=== PATIENT | female | born 1940 | race Caucasian/White ===

== ENCOUNTER → 2016-10-31 | Outpatient (CLI) | payer OTHER ==
[2016-10-26 12:40] LABS: BLOOD UREA NITROGEN 17 mg/dl (7-18); CREATININE 0.93 mg/dl (0.60-1.20)
[~2016-10-31] MED LIST: ACET-1101 PO; ALEN70TA4 PO; ATOR-24 PO; CLON0.5T3 PO; GADAVIST IV PRN; LEVO50TA PO; LEVO75TA5 PO; LISI-725 PO; MAGN1TAB41 PO; MULT-506 PO; PARO20TA4 PO
--- NOTE | 2016-10-31 13:16 | DIAGNOSTIC IMAGING REPORT ---
Brain and bilateral internal auditory canal MRI WITH AND WITHOUT CONTRAST HISTORY: H93.19 [id number] Right asymmetrical SNHLPATIENT WITH RIGHT TECHNIQUE: Multiplanar multisequence MRI of the brain and bilateral internal auditory canals were performed both before and after the intravenous administration of contrast. COMPARISON STUDY: None. FINDINGS: There are no areas of restricted diffusion to suggest acute infarction. 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 Ventriculomegaly and prominence of the sylvian fissures is likely due to volume loss. This remains unchanged. Periventricular matter T2 hyper intensity is nonspecific but favors microvascular ischemic change.. The paranasal sinuses are clear. The mastoid air cells are clear. There is no mass, hematoma, midline shift. The major vascular flow-voids at the skull base are well maintained. Postcontrast sequences show no areas of abnormal enhancement. No abnormal enhancement or mass identified within the internal auditory canals. The 7th and 8th cranial nerves are normal in course and caliber. No evidence for inner ear dysplasia. IMPRESSION: 1. No acute intracranial abnormality. 2. Normal bilateral internal auditory canals. 3. Ventriculomegaly and prominence of the sylvian fissures is likely due to volume loss. This remains unchanged. Electronically signed by: Adan Burns M.D. 10/31/2016 1:14 PM Dictated Date/Time: 10/31/2016 1:03 PM
== END | disposition home or self-care (01) ==
LOC: C.MRI 10:25
DX: H93.19 Tinnitus, unspecified ear (principal); H90.41 Sensorineural hearing loss, unilateral, right ear, with unrestricted hearing on the contralateral side; G93.89 Other specified disorders of brain

== ENCOUNTER → 2017-01-11 | Outpatient (CLI) | payer OTHER ==
[~2017-01-11] MED LIST changes: -GADAVIST IV PRN
[2017-01-11 12:13] LABS: BASO % 0.3 %; BASO ABS # 0.02 K/uL (0-0.2); COMPLETE YES; EOS % 2.2 %; HEMATOCRIT 45.2 % (37-47); IG% 0.2 %; LYMPH % 30.9 %; LYMPH ABS # 1.94 K/uL (1.2-3.4); MEAN CELL VOLUME 92.6 fL (80-100); MEAN CORPUSCULAR HEMOGLOBIN 30.5 pg (25-34); MEAN PLATELET VOLUME 9.6 fL (7.4-10.4); MONO % 7.6 %; NEUT % 58.8 %; PLATELET COUNT 277 K/uL (130-400); RED BLOOD COUNT 4.88 M/uL (4.2-5.4); WHITE BLOOD COUNT 6.28 K/uL (4.8-10.8)
[2017-01-11 12:29] LABS: ESTIMATED AVERAGE GLUCOSE 123 mg/dl; HA1C FLAG Normal (Normal)
[2017-01-11 12:48] LABS: ALB/GLOB RATIO 1.2 (0.9-2); ALKALINE PHOSPHATASE 62 U/L (45-117); ALT/SGPT 38 U/L (12-78); AST/SGOT 29 U/L (15-37); BLOOD UREA NITROGEN 14 mg/dl (7-18); BUN/CREATININE RATIO 13.1 (10-20); CARBON DIOXIDE 28 mmol/L (21-32); CHLORIDE 108 mmol/L (98-107); CHOLESTEROL 146 mg/dl (0-200); CHOLESTEROL/HDL RATIO 3.2; GLUCOSE 105 mg/dl (70-99); HDL CHOLESTEROL 45 mg/dl; LDL CHOLESTEROL CALCULATED 63 mg/dl; SODIUM 143 mmol/L (136-145); TRIGLYCERIDES 191 mg/dl (0-150); VERY LOW DENSITY LIPOPROT CALC 38 mg/dl
[2017-01-11 12:49] LABS: CALCIUM 10.6 mg/dl (8.5-10.1)
[2017-01-11 12:55] LABS: THYROID STIMULATING HORMONE 0.688 uIu/ml (0.300-4.500)
== END | disposition home or self-care (01) ==
LOC: C.LABBFT 09:56
PROVIDERS: ATTEND Internal Medicine
DX: E03.9 Hypothyroidism, unspecified (principal); R73.9 Hyperglycemia, unspecified; M81.0 Age-related osteoporosis without current pathological fracture; E78.00 Pure hypercholesterolemia, unspecified; D64.9 Anemia, unspecified

== ENCOUNTER → 2017-01-26 | Outpatient (CLI) | payer OTHER ==
[~2017-01-26] MED LIST changes: -LEVO75TA5 PO
== END | disposition home or self-care (01) ==
LOC: C.LABBFT 10:08
PROVIDERS: ATTEND Internal Medicine
DX: E83.51 Hypocalcemia (principal)

== ENCOUNTER → 2017-04-05 | Outpatient (CLI) | payer OTHER ==
[2017-04-05 12:07] LABS: ALT/SGPT 28 U/L (12-78); AST/SGOT 19 U/L (15-37); BLOOD UREA NITROGEN 18 mg/dl (7-18); BUN/CREATININE RATIO 17.5 (10-20); CALCIUM 9.9 mg/dl (8.5-10.1); CARBON DIOXIDE 26 mmol/L (21-32); CHLORIDE 109 mmol/L (98-107); GLUCOSE 123 mg/dl (70-99); MAGNESIUM 2.7 mg/dl (1.8-2.4); POTASSIUM 3.8 mmol/L (3.5-5.1); SODIUM 143 mmol/L (136-145)
[2017-04-05 12:09] LABS: ALB/GLOB RATIO 1.5 (0.9-2); ALKALINE PHOSPHATASE 57 U/L (45-117)
[2017-04-05 14:31] LABS: CALCIUM URINE 18.1 mg/dl
== END | disposition home or self-care (01) ==
LOC: C.LAB1850 10:07
PROVIDERS: ATTEND Internal Medicine Endocrinology, Diabetes & Metabolism
DX: E83.52 Hypercalcemia (principal)

== ENCOUNTER 2017-06-16 23:43 | Emergency (ER) | payer OTHER ==
[~2017-06-16] VITALS: Ht 162.6 cm; Wt 69.4 kg
[2017-06-16 23:47] VITALS: TEMP 36.6; Ht 162.6 cm; Wt 69.4 kg
[2017-06-17] MEDS ORDERED: LEVO75TA5 PO (00:02)
--- NOTE | 2017-06-17 00:17 | EMERGENCY ROOM VISIT NOTE ---
History Report prepared by Amelia: aGutam Licea Under the Supervision of: Dr. Emeka Almodovar M.D. First contact with patient: 00:06 Chief Complaint: FALL Stated Complaint: FALL History of Present Illness The patient is a 76 year old female with a history of vertigo who presents to the Emergency Room with complaints of a sudden mechanical fall that occurred prior to arrival tonight. She states that she has been using a walker ever since a back surgery a year ago, but recently she has been learning to walk without a walker. She notes that over the last couple days, she has been falling and she does not know why. The patient's son says that the patient fell twice today. The patient states that she was in bed tonight, but had to go to the bathroom, so she got up. She says that she felt a bit dizzy, and then hit a walker into the other walker, and then fell to the floor. The patient states that she has had left hip pain ever since the fall, and she says that she was on the floor for a while. She says that her vertigo gets worse after the fall, but denies any current dizziness. She also denies any loss of consciousness, neck pain, hits to her head, rib pain, chest pain, shortness of breath, fevers, recent illnesses, numbness or urinary symptoms. The patient says that she hurt her elbow a bit from crawling on the floor after the fall. She is not on any blood thinners. Per the patient's son, the patient has been taking Tylenol with codeine for back pain after the surgery. Source of History: patient Onset: Prior to arrival tonight Position: other (global - fall) Quality: other (mechanical) Timing: other (sudden) Associated Symptoms: No LOC, No fevers, No neck pain, No SOB, No urinary symptoms, No numbness Note: Associated symptoms: Left hip pain. Hurt left wrist from crawling on floor. Dizzy intermittently today. Denies recent illnesses or hits to head, rib pain. Review of Systems See HPI for pertinent positives & negatives. A total of 10 systems reviewed and were otherwise negative. Past Medical & Surgical Medical Problems: (1) Closed fracture of right maxilla (2) HTN (hypertension) (3) Spinal cord compression (4) Syncope and collapse Surgical Problems: (1) H/O: hysterectomy Old medical records were reviewed. Nurse's notes were reviewed and I agree with. Family History FH: HTN (hypertension) FH: diabetes mellitus FH: heart disease Social History Smoking Status: Never Smoker Alcohol Use: occasionally Housing Status: lives with family Occupation Status: unemployed Current/Historical Medications Scheduled Alendronate Sodium (Fosamax), 70 MG PO WK Atorvastatin (Lipitor), 40 MG PO HS Clonazepam (Klonopin), 0.5 MG PO DAILY Levothyroxine Sodium (Levothyroxine Sodium), 1 TAB PO DAILY Lisinopril (Zestril), 20 MG PO QAM Multivitamin (Multivitamin), 1 TAB PO QAM Paroxetine Hcl (Paxil), 20 MG PO QAM Scheduled PRN Acetaminophen W/ Codeine (Tylenol W/Codeine #3), 1 TAB PO QID PRN for Pain Allergies Coded Allergies: Penicillins (Verified Allergy, Unknown, childhood allergy, 06/17/17) Physical Exam Vital Signs Date Time Temp Pulse Resp B/P (MAP) Pulse Ox O2 Delivery O2 Flow Rate FiO2 06/17/17 01:31 79 21 175/80 93 Room Air 06/16/17 23:47 36.6 82 20 178/80 96 Room Air Physical Exam General: Non-ill appearing older female in no acute distress. Answers questions appropriately, somewhat hard of hearing. HEENT: Normal cephalic atraumatic. Pupils are equal round and reactive to light. Extraocular movements are intact. Oropharynx is pink with moist mucous membranes. No swelling of the mouth lips or tongue. Neck: Supple with a midline trachea. No meningeal signs or stiffness, no JVD or bruits. No Stridor. Chest: Clear to auscultation bilaterally. No wheezes or rhonchi. No increased work of breathing. Heart: regular rate and rhythm. Abdomen: Soft nontender, nondistended without rebound guarding or rigidity. Extremities: Small bruise on left forearm. Small bruises to knees bilaterally without tenderness. Full range of motion of hips and knees. No calf tenderness or assymetry. Spine/Back. Non tender to palpation. No CVA tenderness. Large previous scar on back. Skin: Good turgor without rashes. Neurologic exam: Cranial nerves two through 12 are intact. Motor and sensation are intact and symmetrical throughout. Medical Decision & Procedures ER Provider Diagnostic Interpretation: Radiology results as stated below per my review and radiologist interpretation: PELVIS AND HIP X-RAY: No fracture or dislocation seen, no acute abnormalities. CT HEAD: Compared to MRI of 10/31/16 No acute brain or skull injury. Ventriculomegaly. Cannot exclude normal pressure hydrocephalus. Radiologist: Alfred Bowman M.D. Laboratory Results 06/17/17 00:30 Red Blood Count 4.70, Mean Corpuscular Volume 90.2, Mean Corpuscular Hemoglobin 30.4, Mean Corpuscular Hemoglobin Concent 33.7, Mean Platelet Volume 9.2, Neutrophils (%) (Auto) 76.0, Lymphocytes (%) (Auto) 17.3, Monocytes (%) (Auto) 5.5, Eosinophils (%) (Auto) 0.8, Basophils (%) (Auto) 0.2, Neutrophils # (Auto) 6.79, Lymphocytes # (Auto) 1.55, Monocytes # (Auto) 0.49, Eosinophils # (Auto) 0.07, Basophils # (Auto) 0.02 06/17/17 00:30 Test 06/17/17 00:30 06/17/17 00:33 06/17/17 01:30 White Blood Count 8.94 K/uL (4.8-10.8) Red Blood Count 4.70 M/uL (4.2-5.4) Hemoglobin 14.3 g/dL (12.0-16.0) Hematocrit 42.4 % (37-47) Mean Corpuscular Volume 90.2 fL (80-100) Mean Corpuscular Hemoglobin 30.4 pg (25-34) Mean Corpuscular Hemoglobin Concent 33.7 g/dl (32-36) Platelet Count 216 K/uL (130-400) Mean Platelet Volume 9.2 fL (7.4-10.4) Neutrophils (%) (Auto) 76.0 % Lymphocytes (%) (Auto) 17.3 % Monocytes (%) (Auto) 5.5 % Eosinophils (%) (Auto) 0.8 % Basophils (%) (Auto) 0.2 % Neutrophils # (Auto) 6.79 K/uL (1.4-6.5) Lymphocytes # (Auto) 1.55 K/uL (1.2-3.4) Monocytes # (Auto) 0.49 K/uL (0.11-0.59) Eosinophils # (Auto) 0.07 K/uL (0-0.5) Basophils # (Auto) 0.02 K/uL (0-0.2) RDW Standard Deviation 41.7 fL (36.4-46.3) RDW Coefficient of Variation 12.6 % (11.5-14.5) Immature Granulocyte % (Auto) 0.2 % Immature Granulocyte # (Auto) 0.02 K/uL (0.00-0.02) Prothrombin Time 10.7 SECONDS (9.0-12.0) Prothromb Time International Ratio 1.0 (0.9-1.1) Activated Partial Thromboplast Time 26.7 SECONDS (21.0-31.0) Partial Thromboplastin Ratio 1.0 Anion Gap 6.0 mmol/L (3-11) Est Creatinine Clear Calc Drug Dose 51.8 ml/min Estimated GFR () 74.5 Estimated GFR (Non- 64.3 BUN/Creatinine Ratio 15.9 (10-20) Calcium Level 9.4 mg/dl (8.5-10.1) Total Bilirubin 0.5 mg/dl (0.2-1) Direct Bilirubin 0.1 mg/dl (0-0.2) Aspartate Amino Transf (AST/SGOT) 42 U/L (15-37) Alanine Aminotransferase (ALT/SGPT) 35 U/L (12-78) Alkaline Phosphatase 60 U/L (45-117) Total Creatine Kinase 359 U/L (26-192) Creatine Kinase MB 4.2 ng/ml (0.5-3.6) Creatine Kinase MB Ratio 1.2 (0-3.0) Total Protein 7.5 gm/dl (6.4-8.2) Albumin 3.9 gm/dl (3.4-5.0) Lipase 143 U/L (73-393) Bedside Troponin I < 0.030 ng/ml (0-0.045) Urine Color YELLOW Urine Appearance CLOUDY (CLEAR) Urine pH 8.5 (4.5-7.5) Urine Specific [place] 1.020 (1.000-1.030) Urine Protein NEG (NEG) Urine Glucose (UA) NEG (NEG) Urine Ketones NEG (NEG) Urine Occult Blood NEG (NEG) Urine Nitrite NEG (NEG) Urine Bilirubin NEG (NEG) Urine Urobilinogen NEG (NEG) Urine Leukocyte Esterase SMALL (NEG) Urine WBC (Auto) 1-5 /hpf (0-5) Urine RBC (Auto) 0-4 /hpf (0-4) Urine Hyaline Casts (Auto) 1-5 /lpf (0-5) Urine Epithelial Cells (Auto) 20-30 /lpf (0-5) Urine Bacteria (Auto) NEG (NEG) Laboratory studies as stated above per my review. ECG Indication: other (dizzy) Rate (beats per minute): 78 Rhythm: normal sinus Findings: no acute ischemic change, no ectopy Change: no significant change (compared to October 16 2015) ED Course 0007: Past medical records reviewed. The patient was evaluated in room B11B, and a complete history and physical examination were performed 0124: I reevaluated the patient and she is getting catheterized right now. I talked to the patient's son. 0151: I reevaluated the patient and she is getting an ambulatory trial. 0200: Upon reevaluation, the patient is resting and wants to go home. She will stay with her son nigel. I discussed the results and treatment plan with her. She verbalized agreement of the treatment plan. The patient was discharged home. Medical Decision Differentials include trauma, orthopedic injuries, vertigo, intracranial process , infection, electrolyte or metabolic abnormality. This patient comes in as described above. She fell has left hip pain she is followed a couple times recently. Her son thinks that is related to her usage of Tylenol No. 3 which she takes for her back. She did not hit her head just had some dizziness lately, she does tend to suffer from chronic vertigo and she says when she gets feeling dizzy she tends to feel dizzy off-and-on. She has no vertigo symptoms here. She looks well on exam and has no complaints at present when I move both her hips they do not cause any pain. She has no shortening or deformity. She has small abrasions to her knees. IV access established, EKG was obtained which shows nothing to suggest acute coronary syndrome or arrhythmia. She has no acute electrolyte or metabolic abnormality. She nothing to suggest infection. X-ray of the pelvis and left hip was unremarkable. The right hip is well visualized as well and has no fracture or abnormality. She initially had left hip pain but when she walks she said her right hip was now hurting and I went back and reviewed the x-rays it looks unremarkable CAT scan of her head does not show any acute findings. She does have some atrophy and I cannot rule out normal pressure hydrocephalus, I think that's unlikely clinically however and is more likely from atrophy. She is able walk with a walker does feel up to going home. She's going to stay with her son nigel and see how she is doing. I encourage her return if she has problems taking care of herself or any new problems or concerns. She is going to use Aleve rather then the Tylenol No. 3 as the son feels that this is playing a role and I I tend agree as it could be making her feel off balance. She should follow-up with her doctor Monday for recheck and return over the weekend if symptoms worsen or she has any new problems or concerns. Medication Reconcilliation Current Medication List: was personally reviewed by me Blood Pressure Screening Patient's blood pressure: Elevated blood pressure Blood pressure disposition: Elevated BP felt to be situational Impression Primary Impression: Hip pain, left Additional Impression: Dizziness Scribe Attestation The scribe's documentation has been prepared under my direction and personally reviewed by me in its entirety. I confirm that the note above accurately reflects all work, treatment, procedures, and medical decision making performed by me. Departure Information Dispostion Home / Self-Care Referrals Digeo Sutton M.D. (PCP) Patient Instructions My [facility] Additional Instructions Rest. Use your walker and be very careful when getting up and down. Use Aleve rather than Tylenol No. 3 as I think that may be making you drowsy and off balance Return if: Problems taking care of your health self at home, further falls, numbness weakness, any new problems or concerns Follow-up with your doctor Monday for recheck Problem Qualifiers
[2017-06-17 00:50] LABS: BASO % 0.2 %; BASO ABS # 0.02 K/uL (0-0.2); COMPLETE YES; EOS % 0.8 %; HEMATOCRIT 42.4 % (37-47); IG% 0.2 %; LYMPH % 17.3 %; LYMPH ABS # 1.55 K/uL (1.2-3.4); MEAN CELL VOLUME 90.2 fL (80-100); MEAN CORPUSCULAR HEMOGLOBIN 30.4 pg (25-34); MEAN CORPUSCULAR HGB CONC 33.7 g/dl (32-36); MEAN PLATELET VOLUME 9.2 fL (7.4-10.4); MONO % 5.5 %; PLATELET COUNT 216 K/uL (130-400); WHITE BLOOD COUNT 8.94 K/uL (4.8-10.8)
[2017-06-17 01:04] LABS: PROTHROMBIN TIME (PATIENT) 10.7 SECONDS (9.0-12.0)
[2017-06-17 01:08] LABS: BUN/CREATININE RATIO 15.9 (10-20); CALCIUM 9.4 mg/dl (8.5-10.1); CREATININE 0.87 mg/dl (0.60-1.20); POTASSIUM 3.9 mmol/L (3.5-5.1)
[2017-06-17 01:13] LABS: CKMB/CK RATIO 1.2 (0-3.0)
[2017-06-17 01:47] LABS: URINE APPEARANCE CLOUDY (CLEAR); URINE BILIRUBIN NEG (NEG); URINE COLOR YELLOW; URINE EPITHELIAL CELL AUTO 20-30 /lpf (0-5); URINE NITRITE NEG (NEG); URINE PH 8.5 (4.5-7.5); UROBILINOGEN NEG (NEG)
[2017-06-17 01:52] LABS: MANUAL MICROSCOPIC REQUIRED? NO; REVIEW REQ? NO
[2017-06-17 02:21] VITALS: BP 175/80; PULSE 79; O2SAT 94
--- NOTE | 2017-06-17 09:06 | DIAGNOSTIC IMAGING REPORT ---
CT OF THE HEAD WITHOUT CONTRAST CLINICAL HISTORY: Dizzy, frequent falls. COMPARISON STUDY: Head CT October 14, 2015 and MRI of the brain October 31, 2016. CT DOSE: 614.27 mGy.cm TECHNIQUE: Helical axial images of the head were obtained without IV contrast. Automated exposure control was utilized for the study. A dose lowering technique was utilized adhering to the principles of ALARA. FINDINGS: No acute intracranial hemorrhage, midline shift or mass effect is present. Ventricular dilatation is unchanged. Basilar cisterns are patent. There are no extra-axial collections. White matter hypodensity suggests small vessel disease. There are no findings to suggest acute dural sinus thrombosis or acute territorial infarct. There is no calvarial fracture. IMPRESSION: 1. No acute intracranial findings. 2. No change in ventricular dilatation which is proportional to prominence of the sylvian fissures which favors central volume loss. Normal pressure hydrocephalus could appear similar but is considered less likely. Electronically signed by: Ascencion Navarro M.D. 06/17/2017 9:05 AM Dictated Date/Time: 06/17/2017 9:01 AM
--- NOTE | 2017-06-17 09:07 | DIAGNOSTIC IMAGING REPORT ---
L PELVIS/UNILATERAL HIP 1 VIEW CLINICAL HISTORY: Left hip pain. Fall. COMPARISON: None FINDINGS: The sacroiliac joints and symphysis pubis are intact. There is no acute fracture within the pelvis or hips. IMPRESSION: No acute fracture within the pelvis or hips. Electronically signed by: Ascencion Navarro M.D. 06/17/2017 9:05 AM Dictated Date/Time: 06/17/2017 9:05 AM
== END 2017-06-17 02:23 | disposition home or self-care (01) ==
LOC: EDBD 23:43 → C.EDB 23:43
DX: R42 Dizziness and giddiness (principal); M25.552 Pain in left hip; I10 Essential (primary) hypertension; Z87.81 Personal history of (healed) traumatic fracture; Z90.710 Acquired absence of both cervix and uterus; Z79.899 Other long term (current) drug therapy; Z82.49 Family history of ischemic heart disease and other diseases of the circulatory system; Z83.3 Family history of diabetes mellitus

== ENCOUNTER → 2017-11-21 | Outpatient (CLI) | payer OTHER ==
[~2017-11-21] MED LIST changes: -LEVO50TA PO; +LEVO75TA5 PO; -MAGN1TAB41 PO
[2017-11-21 12:31] LABS: HEMOGLOBIN A1C 5.8 % (4.5-5.6)
[2017-11-21 12:52] LABS: ALBUMIN 4.1 gm/dl (3.4-5.0); ALKALINE PHOSPHATASE 66 U/L (45-117); ALT/SGPT 33 U/L (12-78); AST/SGOT 27 U/L (15-37); BLOOD UREA NITROGEN 11 mg/dl (7-18); CALCIUM 9.8 mg/dl (8.5-10.1); CARBON DIOXIDE 27 mmol/L (21-32); CREATININE 0.88 mg/dl (0.60-1.20); GLUCOSE 113 mg/dl (70-99); POTASSIUM 4.5 mmol/L (3.5-5.1); SODIUM 141 mmol/L (136-145); TOTAL PROTEIN 7.8 gm/dl (6.4-8.2)
== END | disposition home or self-care (01) ==
LOC: C.LABBFT 10:49
PROVIDERS: ATTEND Internal Medicine
DX: E21.0 Primary hyperparathyroidism (principal); M81.0 Age-related osteoporosis without current pathological fracture; E03.9 Hypothyroidism, unspecified; R73.03 Prediabetes

== ENCOUNTER 2023-05-13 11:34 | Inpatient (IN) ==
[2023-05-13] MEDS ORDERED: ONDANSETRON INJ 2 MG/ML 2 ML VIAL IV STA (11:49)
[2023-05-13] MEDS ORDERED: MoRPHine SULFATE 2 MG/ML CARP IV STA (11:49)
--- NOTE | 2023-05-13 11:56 | Emergency Department Note ---
History of Present Illness General Chief complaint: Fall Stated complaint: FALL Time Seen by Provider: 05/13/23 11:48 Source: patient, family (Son who is at the bedside), EMS (I talked to the physician underwriter who brought her in) and RN notes reviewed Mode of arrival: ambulatory Limitations: no limitations History of Present Illness This patient is an 82-year-old female comes in after suffering a mechanical fall. She was using her walker and said it got away from her she leaned on her left knee. She is on no blood thinners she does not think she hit her head and has no headache no chest pain shortness of breath or abdominal pain. No numbn ess or weakness but she has difficulty extending her left knee secondary to pain/deformity. Home Medications Medication Instructions Recorded Confirmed Type alendronate 70 mg tablet 70 mg PO WEEKLY #12 tabs 02/09/19 05/13/23 History atorvastatin 40 mg tablet 40 mg PO QPM #90 tabs 02/09/19 05/13/23 History cholecalciferol (vitamin D3) 75 3,000 units PO QAM 02/09/19 05/13/23 History mcg (3,000 unit) tablet fluticasone propionate 50 2 sprays intranasal DAILY PRN 02/09/19 05/13/23 History mcg/actuation nasal Allergy Symptoms spray,suspension (Flonase Allergy Relief) hydrocortisone 2.5 % topical cream 1 appln KS DAILY PRN Hemorrhoids 02/09/19 05/13/23 History with perineal applicator (Anusol-HC) hydrocortisone acetate 25 mg 25 mg KS BID PRN Hemorrhoids #28 ea 02/09/19 05/13/23 History rectal suppository loratadine 10 mg capsule 10 mg PO QAM 02/09/19 05/13/23 History magnesium 200 mg tablet 400 mg PO QAM 02/09/19 05/13/23 History kqgpvdfgzhpq-qmrfidub-ntrejl tablet 1 tab PO QAM 02/09/19 05/13/23 History meclizine 25 mg tablet 25 mg PO Q6 PRN dizziness #30 tabs 02/11/19 05/13/23 Rx montelukast 10 mg tablet 10 mg PO QAM #30 tabs 02/27/19 05/13/23 History acetaminophen 300 mg-codeine 30 mg 1 tab PO BID PRN Pain 04/27/20 05/13/23 History tablet levothyroxine 100 mcg tablet 100 mcg PO QAM 03/19/21 05/13/23 History lidocaine 5 % topical patch 1 patch topical DAILY 03/19/21 05/13/23 History losartan 100 mg tablet 100 mg PO QAM 03/19/21 05/13/23 History ondansetron 4 mg disintegrating 4 mg PO Q8H 03/19/21 05/13/23 History tablet pantoprazole 20 mg tablet,delayed 20 mg PO QAM 03/19/21 05/13/23 History release sennosides 8.6 mg tablet (senna) 8.6 - 17.2 mg PO HS 03/19/21 05/13/23 History spironolactone 25 mg tablet 25 mg PO QAM 03/19/21 05/13/23 History Medical Marijuana 10 mg PO BID PRN Pain 03/22/21 05/13/23 History baclofen 10 mg tablet 10 mg PO BID PRN pain/spasm #30 01/16/23 05/13/23 Rx tabs Allergies Allergy/AdvReac Type Severity Reaction Status Date / Time Penicillins Allergy Mild childhood Verified 09/10/21 10:21 allergy povidone-iodine AdvReac Unknown Hives Verified 09/10/21 10:21 [From Betadine] Past Med/Surg History Medical History Allergic rhinitis Depression with anxiety no meds currently Gait disturbance Hemorrhoids History of anesthesia reaction woke up during colonoscopy procedure years ago History of basal cell carcinoma neck and back Hypercholesterolemia Hypothyroidism Insomnia Medical marijuana use Mitral regurgitation Osteoporosis Other spondylosis with myelopathy, thoracic region Right asymmetrical SNHL Symptomatic mammary hypertrophy Tricuspid regurgitation Urinary incontinence Vertigo Surgical History History of back surgery T10-L2 fusion Dr. Moralez History of basal cell carcinoma (BCC) excision History of bilateral cataract extraction History of colonoscopy History of dilatation and curettage multiple History of open reduction and internal fixation (ORIF) procedure left wrist--hardware in place History of tooth extraction all top teeth, most bottom History of total abdominal hysterectomy and bilateral salpingo-oophorectomy History of wisdom tooth extraction Family History Mother Cardiac pacemaker Asthma Father Diabetes Coronary arteriosclerosis Sister Crohn's disease Other No family history of adverse response to anesthesia Social History Smoking Status: Never smoker Second Hand Exposure: No; Do You Dip or Chew Tobacco: No; Hx Alcohol Use: Yes Alcohol type: wine Hx Substance Use: Yes (medical marijuana) Preferred Language: Filipino Communication Ability: Effective Visual Impairment: No Limitations Hearing Ability: Hard of Hearing Accounting Professor Required: No Beliefs That Will Affect Care: None Current Living Situation: Alone current occupational status: retired Feels Safe at Home: Yes Assistive Devices: Denture - Upper and Glasses Review of Systems A total of 10 systems reviewed and were otherwise negative Physical Exam Vital Signs Vital Signs - 24 hr 05/13/23 11:35 05/13/23 11:35 05/13/23 11:51 Temperature 36.4 C L Temperature Source Oral Pulse Rate 78 Pulse Rate [Bilateral] 74 Respiratory Rate 18 18 Blood Pressure 139/65 Blood Pressure [Right Arm] 139/65 Blood Pressure Mean 89 Blood Pressure Mean [Right Arm] 89 Pulse Oximetry 94 93 94 Oxygen Delivery Method Room Air Room Air Room Air Oxygen Flow Rate Sepsis Recent Fever Within 48 Hours No Sepsis New/Unexplained Change in Mental Status N/A Sepsis Action Taken by Nursing No Action Required 05/13/23 12:05 05/13/23 12:31 05/13/23 12:31 Temperature Temperature Source Pulse Rate 84 Pulse Rate [Bilateral] Respiratory Rate Blood Pressure Blood Pressure [Right Arm] Blood Pressure Mean Blood Pressure Mean [Right Arm] Pulse Oximetry 87 L 99 Oxygen Delivery Method Room Air Nasal Cannula Oxygen Flow Rate 2 Sepsis Recent Fever Within 48 Hours Sepsis New/Unexplained Change in Mental Status Sepsis Action Taken by Nursing General: Well developed well nourished older female who is hard of hearing but in no acute distress, breathing comfortably on room air. Normal speech HEENT: Normal cephalic atraumatic. Pupils are equal round and reactive to light. Extraocular movements are intact. Oropharynx is pink with moist mucous membranes. No swelling of the mouth lips or tongue. Neck: Supple with a midline trachea. No meningeal signs or stiffness, no JVD or bruits. No Stridor. Chest: Clear to auscultation bilaterally. No wheezes or rhonchi. No increased work of breathing. Heart: Regular rate and rhythm without murmurs or gallops. Abdomen: Soft nontender, nondistended without rebound guarding or rigidity. Extremities: No cyanosis clubbing or edema. No calf tenderness or assymetry. The left knee is held slightly flexed. Anteriorly along the patella appears appears somewhat irregular the skin is intact. Distally she has normal pulses and sensation Spine/Back. Non tender to palpation. No CVA tenderness Skin: Good turgor without rashes. Neurologic exam: Cranial nerves two through 12 are intact. Motor and sensation are intact and symmetrical throughout. Course Administered Medications Discontinued Medications Morphine Sulfate (Morphine Sulfate 2 Mg/Ml Carp) 2 mg IV NOW STA Stop: 05/13/23 11:50 Last Admin: 05/13/23 12:20 Dose: 2 mg Documented By: TBS Ondansetron HCl (Ondansetron Inj 2 Mg/Ml 2 Ml Vial) 4 mg IV NOW STA Stop: 05/13/23 11:50 Last Admin: 05/13/23 12:21 Dose: 4 mg Documented By: HUSSAIN Medical Decision Making Differential Diagnosis Fracture, dislocation, contusion, ligamentous injury, fall, trauma, neurovascular injury Medical Records Attestation: I reviewed the patient's medical records. Home Medications Current Medication List: was personally reviewed by me Laboratory Data Attestation: I reviewed the patient's lab results. 05/13/23 11:47 05/13/23 11:47 Lab Results 05/13/23 05/13/23 Range/Units 11:47 11:47 WBC 6.37 (4.8-10.8) K/ul RBC 4.46 (4.20-5.40) M/uL Hgb 13.4 (12.0-16.0) g/dl Hct 39.9 (37.0-47.0) % MCV 89.5 (80.0-100.0) fL MCH 30.0 (25.0-34.0) pg MCHC 33.6 (32.0-36.0) g/dL RDW Std Deviation 41.1 (36.4-46.3) fL RDW Coeff of Azra 12.6 (11.5-14.5) % Plt Count 281 (130-400) K/uL MPV 9.6 (9.4-12.4) fL Immature Gran % (Auto) 0.3 % Neut % (Auto) 56.2 % Lymph % (Auto) 30.3 % Dale % (Auto) 8.5 % Eos % (Auto) 4.2 % Baso % (Auto) 0.5 % Neut # (Auto) 3.58 (1.40-6.50) K/uL Lymph # (Auto) 1.93 (1.20-3.40) K/uL Dale # (Auto) 0.54 (0.11-0.59) K/uL Eos # (Auto) 0.27 (0.00-0.50) K/uL Baso # (Auto) 0.03 (0.00-0.20) K/uL Immature Gran # (Auto) 0.02 (0.01-0.20) K/uL Sodium 141 (136-145) mmol/L Potassium 4.4 (3.5-5.1) mmol/L Chloride 109 H (98-107) mmol/L Carbon Dioxide 27 (21-32) mmol/L Anion Gap 5 (3-11) BUN 18 (6-23) mg/dl Creatinine 0.90 (0.6-1.2) mg/dl Est Cr Clr Drug Dosing 40.7 ml/min Est GFR ( Amer) 68.5 ml/min Est GFR (Non-Af Amer) 59.1 ml/min BUN/Creatinine Ratio 20.0 (10-20) Glucose 106 H (70-99(Fasting)) mg/dl Calcium 10.1 (8.6-10.3) mg/dl Total Bilirubin 0.4 (0.2-1.0) mg/dl AST 19 (13-39) U/L ALT 15 (7-52) U/L Alkaline Phosphatase 66 (34-104) U/L Total Protein 6.8 (6.0-8.3) gm/dl Albumin 4.3 (3.4-5.0) gm/dl Globulin 2.5 (2.5-4.0) gm/dl Albumin/Globulin Ratio 1.7 (0.9-2) Imaging Data Attestation: I personally reviewed and interpreted this imaging study as follows: My Impression: Left knee x-raythere is a comminuted displaced patellar fracture Radiologist's Impression: Knee X-Ray 10/21/23 11:49 XR knee LT 1 or 2V routine CLINICAL HISTORY: fall COMPARISON: None FINDINGS: There is an acute moderately displaced comminuted patellar fracture. Multiple bone fragments are noted. Fracture extends to articular surface. Fracture is displaced 1.6 cm. No additional fractures are identified. There is prepatellar soft tissue swelling. IMPRESSION: Acute comminuted displaced intra-articular left patellar fracture with multiple associated bone fragments. ACT 112: Negative or not required by law. Electronically signed by: Ascencion Navarro M.D. 05/13/2023 12:11 PM ECG Data Attestation: I personally reviewed and interpreted this ECG as follows: Indication: + weakness Rate (beats per minute): 71 Rhythm: + normal sinus ECG Intervals/blocks: + Normal QRS, + Normal QT and + Normal KS ECG [place]: + Normal ECG ST segments: + Normal ST segments ECG Findings: + PVCs and + Other (Mildly low voltage); no PACs Comparison ECG Date: from (Most recent in the EMR) MDM Narrative This patient is an 82-year-old female suffered mechanical fall. She is neurologically neurovascular tact is closed IV access established I did order morphine 2 mg IV and Zofran 4 mg IV as well as ice I ordered a portable x-ray and blood work she was kept n.p.o. she was reassessed. Her x-rays do confirm a patellar fracture that is comminuted and displaced and she will likely need surgery. She seems more comfortable with the morphine. I reviewed the x-rays with the patient's son and discussed the care with her as well. I discussed the case with the on-call orthopedist Dr. Soto he said he can repair her tomorrow and would like to have medicine to admit her for medical clearance. Dr. Soto did ask that we get a CT of the knee which I ordered for operative planning. I also ordered a knee immobilizer as he requested. I did discuss the case with Suzette Barney from the [facility] team and they will see the patient for admission/observation. Continuous cardiac monitoring: Orders placed in EMR for continuous cardiac monitoring: Upon my evaluation patient was to be in normal sinus with a rate of 65 Impression & Plan Patellar fracture, Fall, Knee pain, HTN (hypertension), Hypothyroidism Discharge Plan Visit Data Chief Complaint: Fall Stated Complaint: FALL ED Provider: Emeka Almodovar Discharge Problem: Patellar fracture, Fall, Knee pain, HTN (hypertension), Hypothyroidism Forms Stand Alone Forms: [facility] [place] [employer] Prescriptions Prescriptions: No Action acetaminophen-codeine 300-30 mg tablet 1 tab PO BID PRN (Reason: Pain) baclofen 10 mg tablet 10 mg PO BID PRN (Reason: pain/spasm) Qty: 30 1RF alendronate 70 mg tablet 70 mg PO WEEKLY Qty: 12 Patient Comments: TAKE ONE TABLET BY MOUTH ONCE A WEEK atorvastatin 40 mg tablet 40 mg PO QPM Qty: 90 hydrocortisone acetate 25 mg suppository 25 mg KS BID PRN (Reason: Hemorrhoids) Qty: 28 ozvbsqctoecg-rhncedxb-ndgcjr tablet 1 tab PO QAM loratadine 10 mg capsule 10 mg PO QAM fluticasone propionate [Flonase Allergy Relief] 50 mcg/actuation spray,suspension 2 sprays INTNAS DAILY PRN (Reason: Allergy Symptoms) hydrocortisone [Anusol-HC] 2.5 % cream with perineal applicator 1 appln KS DAILY PRN (Reason: Hemorrhoids) magnesium 200 mg tablet 400 mg PO QAM cholecalciferol (vitamin D3) 3,000 unit tablet 3,000 units PO QAM meclizine 25 mg tablet 25 mg PO Q6 PRN (Reason: dizziness) Qty: 30 3RF montelukast 10 mg tablet 10 mg PO QAM Qty: 30 pantoprazole 20 mg Tablet,Delayed Release (Dr/Ec) 20 mg PO QAM lidocaine 5 % Adhesive Patch,Medicated 1 patch TOPICAL DAILY spironolactone 25 mg tablet 25 mg PO QAM levothyroxine 100 mcg tablet 100 mcg PO QAM losartan 100 mg tablet 100 mg PO QAM sennosides [senna] 8.6 mg Tablet 8.6 - 17.2 mg PO HS ondansetron 4 mg Tablet,Disintegrating 4 mg PO Q8H Medical Marijuana 10 mg PO BID PRN (Reason: Pain) Referrals Referrals: Tara Schneider DO [Primary Care Provider] -
--- NOTE | 2023-05-13 12:13 | XRay Report ---
XR knee LT 1 or 2V routine CLINICAL HISTORY: fall COMPARISON: None FINDINGS: There is an acute moderately displaced comminuted patellar fracture. Multiple bone fragmen ts are noted. Fracture extends to articular surface. Fracture is displaced 1.6 cm. No additional frac tures are identified. There is prepatellar soft tissue swelling. IMPRESSION: Acute comminuted displaced intra-articular left patellar fracture with multiple associate d bone fragments. ACT 112: Negative or not required by law. Electronically signed by: Ascencion Navarro M.D. 05/13/2023 12:11 PM
[2023-05-13 12:18] LABS: Basophils # (auto) 0.03 K/uL (0.00-0.20); Basophils % (auto) 0.5 %; Eosinophils # (auto) 0.27 K/uL (0.00-0.50); Eosinophils % (auto) 4.2 %; Hematocrit (blood only) 39.9 % (37.0-47.0); Hemoglobin 13.4 g/dl (12.0-16.0); Immature Granulocytes # (auto) 0.02 K/uL (0.01-0.20); Immature Granulocytes % (auto) 0.3 %; Lymphocytes # (auto) 1.93 K/uL (1.20-3.40); Lymphocytes % (auto) 30.3 %; Mean Corpuscular Hgb Conc 33.6 g/dL (32.0-36.0); Mean Corpuscular Volume 89.5 fL (80.0-100.0); Mean Platelet Volume 9.6 fL (9.4-12.4); Monocytes # (auto) 0.54 K/uL (0.11-0.59); Monocytes % (auto) 8.5 %; Neutrophils # (auto) 3.58 K/uL (1.40-6.50); Neutrophils % (auto) 56.2 %; Platelet Count 281 K/uL (130-400); RDW Coefficient of Variation 12.6 % (11.5-14.5); RDW Standard Deviation 41.1 fL (36.4-46.3); Red Blood Count 4.46 M/uL (4.20-5.40); White Blood Count 6.37 K/ul (4.8-10.8)
[2023-05-13 12:35] LABS: Potassium 4.4 mmol/L (3.5-5.1)
[2023-05-13 12:51] LABS: Albumin Globulin Ratio 1.7 (0.9-2); Albumin Level 4.3 gm/dl (3.4-5.0); Bilirubin,Total 0.4 mg/dl (0.2-1.0); Calcium 10.1 mg/dl (8.6-10.3); Creatinine Clr Calc Pharmacy 40.7 ml/min; Est GFR (African American) 68.5 ml/min; Est GFR (Non-African American) 59.1 ml/min; Globulin 2.5 gm/dl (2.5-4.0); Total Protein 6.8 gm/dl (6.0-8.3)
--- NOTE | 2023-05-13 13:17 | History & Physical Report ---
Date of Service May 13, 2023 Assessment & Plan (1) Fall: (2) Patellar fracture: (3) Gait disturbance: (4) HTN (hypertension): (5) Hypothyroidism: (6) Osteoporosis: (7) History of back surgery: Plan This is an 82-year-old female with PMH of hypertension, CKD 3, anxiety, hy pothyroidism, dyslipidemia, osteoporosis who presents after a fall and was found to have an acute displaced left patellar fracture. Mechanical fall Displaced left patellar fracture Fall earlier today, baseline gait disturbance from chronic back pain requiring walker Knee CT acute comminuted moderately displaced left patellar fracture, as described above. Numerous bone fragments. Associated prepatellar contusion and small hemarthrosis ED discussed with Dr. Soto, who plans for OR in AM Pain control, knee in immobilizer, NPO @ midnight EKG reviewed with SR with occasional PVCs, no acute ST changes, CXR no acute cardiopulmonary findings. Echo September 2019 with preserved EF 65%, mild aortic sclerosis, mild AV regurg Revised cardiac risk index for pre-op risk is a class I risk or 3.9% HTN Chronic; stable. Normotensive on admission. Continue losartan, hold spironolactone prior to surgery CKD III Cr 0.90, at baseline. Daily BMP Hypothyroidism Continue levothyroxine HLD Continue statin DVT Ppx: SCDs Code status: FULL PCP: Saran Schneider Dispo: Admitted to med/surg Patient seen in collaboration with Dr. Ham. Please see addendum. History of Present Illness Chief Complaint: Fall Primary Care Provider: Tara Schneider, DO This is an 82-year-old female with PMH of hypertension, CKD 3, anxiety, hypothyroidism, dyslipidemia, osteoporosis who presents after a fall. Was getting her flu and COVID vaccines at a local [facility] with her son and was walking down the exit ramp with her walker when it got away from her and she fell, landing on her left knee. Presented to ED for further evaluation. Pain is controlled at this time with rest and IV morphine. No lightheadedness, chest pain or shortness of breath preceding fall. Denies hitting her head or LOC. Not on anticoagulation. History of osteoporosis recently switched from Fosamax to Prolia. Denies any fever, chills, lightheadedness, palpitations, nausea, vomiting, abdominal pain, dysuria, diarrhea or constipation. Allergies Allergy/AdvReac Type Severity Reaction Status Date / Time Penicillins Allergy Mild childhood Verified 09/10/21 10:21 allergy povidone-iodine AdvReac Unknown Hives Verified 09/10/21 10:21 [From Betadine] Home Medications Medication Instructions Recorded Confirmed Type atorvastatin 40 mg tablet 40 mg PO QPM #90 tabs 02/09/19 05/13/23 History cholecalciferol (vitamin D3) 75 3,000 units PO QAM 02/09/19 05/13/23 History mcg (3,000 unit) tablet fluticasone propionate 50 2 sprays intranasal DAILY PRN 02/09/19 05/13/23 History mcg/actuation nasal Allergy Symptoms spray,suspension (Flonase Allergy Relief) hydrocortisone 2.5 % topical cream 1 appln SD DAILY PRN Hemorrhoids 02/09/19 05/13/23 History with perineal applicator (Anusol-HC) hydrocortisone acetate 25 mg 25 mg SD BID PRN Hemorrhoids #28 ea 02/09/19 05/13/23 History rectal suppository loratadine 10 mg capsule 10 mg PO QAM 02/09/19 05/13/23 History magnesium 200 mg tablet 400 mg PO QAM 02/09/19 05/13/23 History caghycnqlfnm-xcueivov-ofvntu tablet 1 tab PO QAM 02/09/19 05/13/23 History meclizine 25 mg tablet 25 mg PO Q6 PRN dizziness #30 tabs 02/11/19 05/13/23 Rx montelukast 10 mg tablet 10 mg PO QAM #30 tabs 02/27/19 05/13/23 History acetaminophen 300 mg-codeine 30 mg 1 tab PO BID PRN Pain 04/27/20 05/13/23 History tablet levothyroxine 100 mcg tablet 100 mcg PO QAM 03/19/21 05/13/23 History lidocaine 5 % topical patch 1 patch topical DAILY PRN Allergy 03/19/21 05/13/23 History Symptoms losartan 100 mg tablet 100 mg PO QAM 03/19/21 05/13/23 History ondansetron 4 mg disintegrating 4 mg PO Q8H 03/19/21 05/13/23 History tablet pantoprazole 20 mg tablet,delayed 20 mg PO QAM 03/19/21 05/13/23 History release sennosides 8.6 mg tablet (senna) 8.6 mg PO HS 03/19/21 05/13/23 History spironolactone 25 mg tablet 25 mg PO QAM 03/19/21 05/13/23 History Medical Marijuana 10 mg PO BID PRN Pain 03/22/21 05/13/23 History baclofen 10 mg tablet 10 mg PO BID PRN pain/spasm #30 01/16/23 05/13/23 Rx tabs denosumab 60 mg/mL subcutaneous 60 mg subcut UD 05/13/23 05/13/23 History syringe (Prolia) Past Med/Surg History Medical History Allergic rhinitis Depression with anxiety no meds currently Gait disturbance Hemorrhoids History of anesthesia reaction woke up during colonoscopy procedure years ago History of basal cell carcinoma neck and back Hypercholesterolemia Hypothyroidism Insomnia Medical marijuana use Mitral regurgitation Osteoporosis Other spondylosis with myelopathy, thoracic region Right asymmetrical SNHL Symptomatic mammary hypertrophy Tricuspid regurgitation Urinary incontinence Vertigo Surgical History History of back surgery T10-L2 fusion Dr. Moralez History of basal cell carcinoma (BCC) excision History of bilateral cataract extraction History of colonoscopy History of dilatation and curettage multiple History of open reduction and internal fixation (ORIF) procedure left wrist--hardware in place History of tooth extraction all top teeth, most bottom History of total abdominal hysterectomy and bilateral salpingo-oophorectomy History of wisdom tooth extraction Family History Mother Cardiac pacemaker Asthma Father Diabetes Coronary arteriosclerosis Sister Crohn's disease Other No family history of adverse response to anesthesia Social History Smoking Status: Never smoker Second Hand Exposure: No; Do You Dip or Chew Tobacco: No; Hx Alcohol Use: Yes Alcohol type: wine Hx Substance Use: No Preferred Language: Gambian Communication Ability: Effective Visual Impairment: No Limitations Hearing Ability: Hard of Hearing Figure Model Required: No Beliefs That Will Affect Care: None Current Living Situation: Alone Current Living Situation Comment: living at [facility] current occupational status: retired Other Information That Helps Us Care for You: No Feels Safe at Home: Yes Safety Concerns: Feels Safe At This Time Assistive Devices: Denture - Upper and Walker Review of Systems Review of Systems: At least ten systems reviewed and negative except as noted in the HPI. Physical Exam Physical Exam: General Appearance: WD/WN, vitals as above, NAD, sitting up in bed, pleasant, conversing easily Head: normocephalic, atraumatic Eyes: normal inspection, PERRL, conjunctivae normal, anicteric sclerae ENT: external ear and nose normal, oropharynx normal Neck: normal visual inspection, trachea midline, no thyromegaly Respiratory: normal respiratory effort, lungs clear to auscultation, no wheeze, rales, rhonchi. No accessory muscle use Cardiovascular: regular rate, rhythm, +systolic murmur, normal peripheral pulses, no BLE edema. Vessels: no JVD Chest: normal inspection of chest Abdomen/GI: normal bowel sounds, soft, nontender, no hepatosplenomegaly Extremities/Musculoskeletal: + L knee with immobilizer in place, distally NVI, no cyanosis or clubbing, extremities motor strength 5/5 Neurologic: PERRL, EOMI, accommodation nl, no face palsy, no dysarthria, CN's II-XI intact bilaterally and moves all extremities Psychiatric: A+Ox3, euthymic affect Skin: no rashes, normal color, warm/dry Results & Data Results & Data Vital Signs (Past 12 Hours) Vital Signs Temp Pulse Pulse Resp BP BP Pulse Ox 05/13/23 12:31 99 05/13/23 12:31 87 L 05/13/23 12:05 84 05/13/23 11:51 94 05/13/23 11:35 74 18 139/65 93 05/13/23 11:35 36.4 C L 78 18 139/65 94 O2 Del Method O2 Flow Rate 05/13/23 12:31 Nasal Cannula 2 05/13/23 12:31 Room Air 05/13/23 12:05 05/13/23 11:51 Room Air 05/13/23 11:35 Room Air 05/13/23 11:35 Room Air Laboratory Results Short CBC 05/13/23 Range/Units 11:47 WBC 6.37 (4.8-10.8) K/ul Hgb 13.4 (12.0-16.0) g/dl Hct 39.9 (37.0-47.0) % Plt Count 281 (130-400) K/uL BMP 05/13/23 11:47 Sodium 141 Potassium 4.4 Chloride 109 H Carbon Dioxide 27 BUN 18 Creatinine 0.90 Glucose 106 H Calcium 10.1 Liver Function 05/13/23 Range/Units 11:47 Total Bilirubin 0.4 (0.2-1.0) mg/dl AST 19 (13-39) U/L ALT 15 (7-52) U/L Alkaline Phosphatase 66 (34-104) U/L Albumin 4.3 (3.4-5.0) gm/dl Diagnostic Findings Knee X-Ray 05/13/23 11:49 XR knee LT 1 or 2V routine CLINICAL HISTORY: fall COMPARISON: None FINDINGS: There is an acute moderately displaced comminuted patellar fracture. Multiple bone fragments are noted. Fracture extends to articular surface. Fracture is displaced 1.6 cm. No additional fractures are identified. There is prepatellar soft tissue swelling. IMPRESSION: Acute comminuted displaced intra-articular left patellar fracture with multiple associated bone fragments. ACT 112: Negative or not required by law. Electronically signed by: Ascencion Navarro M.D. 05/13/2023 12:[address] 05/13/23 13:[address] WITHOUT CONTRAST CLINICAL HISTORY: PATELLA FRACTURE COMPARISON STUDY: Left knee radiographs performed earlier today. TECHNIQUE: Axial images of the left knee were obtained without IV contrast. Sagittal and coronal reconstructions were viewed. Automated exposure control was utilized for the study. A dose lowering technique was utilized adhering to the principles of ALARA. FINDINGS: Note is made of an acute comminuted moderately displaced fracture which extends through the mid patella with intra-articular extension. Anteriorly, the fracture is displaced 1.8 cm. Small associated hemarthrosis is noted. Prepatellar contusion is noted. This contains several small bone fragments. No acute fracture of the distal left femur or proximal left tibia or fibula is identified. There are no osseous lesions. No soft tissue gas is present. IMPRESSION: 1. Acute comminuted moderately displaced left patellar fracture, as described above. Numerous bone fragments. Associated prepatellar contusion and small hemarthrosis. 2. No additional fractures. ACT 112: Negative or not required by law. Electronically signed by: Ascencion Navarro M.D. 05/13/2023 2:20 PM Code Status & VTE Plan VTE Prophylaxis Plan VTE Prophylaxis will be ordered: Yes Supervising Physician Co-Signing Physician Notes I have seen and examined the patient and have discussed the case with the provider above. I agree with the assessment and plan as stated. 82 yo F with left knee pain 2/2 patellar fracture after mechanical fall. Pain is well controlled. Good historian. Lives alone and is very functional although ambulates with a walker. She still drives and shops in stores, limited ability to walk though aisles stopping for back pain. Denies shortness of breath with exertion or chest pain. EKG reviewed. There is a small difference with low amplitude waves in III and AVF, causing the auto read to report a possible inferior infarction. It doesn't appears consistent with this and she has no symptoms consistent with that. Echo reviewed from 2019. Will plan to repeat EKG in am and discuss with cardiology if there are any further questions. She denies any h/o blood clot; will continue [facility] standard DVT prevention post operatively. She denies any issues with anesthesia in the past. She reports not taking any blood thinners. DO Jitendra (1) Fall Encounter type: initial encounter Qualified Code(s): W19.XXXA - Unspecified fall, initial encounter (2) Patellar fracture Encounter type: initial encounter Fracture alignment: displaced Fracture morphology: comminuted Fracture type: closed Laterality: left Qualified Code(s): S82.042A - Displaced comminuted fracture of left patella, initial encounter for closed fracture (4) HTN (hypertension) Hypertension type: primary hypertension Qualified Code(s): I10 - Essential (primary) hypertension (5) Hypothyroidism Hypothyroidism type: unspecified Qualified Code(s): E03.9 - Hypothyroidism, unspecified
--- NOTE | 2023-05-13 14:21 | CT Scan Report ---
LEFT KNEE CT WITHOUT CONTRAST CLINICAL HISTORY: PATELLA FRACTURE COMPARISON STUDY: Left knee radiographs performed earlier today. TECHNIQUE: Axial images of the left knee were obtained without IV contrast. Sagittal and coronal mell nstructions were viewed. Automated exposure control was utilized for the study. A dose lowering tech nique was utilized adhering to the principles of ALARA. FINDINGS: Note is made of an acute comminuted moderately displaced fracture which extends through the mid patella with intra-articular extension. Anteriorly, the fracture is displaced 1.8 cm. Small asso ciated hemarthrosis is noted. Prepatellar contusion is noted. This contains several small bone fragme nts. No acute fracture of the distal left femur or proximal left tibia or fibula is identified. There are no osseous lesions. No soft tissue gas is present. IMPRESSION: 1. Acute comminuted moderately displaced left patellar fracture, as described above. Numerous bone fr agments. Associated prepatellar contusion and small hemarthrosis. 2. No additional fractures. ACT 112: Negative or not required by law. Electronically signed by: Ascencion Navarro M.D. 05/13/2023 2:20 PM
[2023-05-13] MEDS ORDERED: POLYETHYLENE (MIRALAX) 17 GM PACK PO PRN (15:22)
[2023-05-13] MEDS ORDERED: ONDANSETRON INJ 2 MG/ML 2 ML VIAL IV PRN (15:22)
--- NOTE | 2023-05-13 15:45 | XRay Report ---
XR chest 1V portable CLINICAL HISTORY: pre-op COMPARISON STUDY: Chest radiograph October 14, 2015. FINDINGS: Lung volumes are mildly diminished. Thoracolumbar spine fusion is incidentally noted. Lungs are clear. There is no pneumothorax or pleural effusion. Cardiac size is normal. Mediastinal contour s are normal. There is no evidence for pulmonary edema. IMPRESSION: No acute cardiopulmonary findings. ACT 112: Negative or not required by law. Electronically signed by: Ascencion Navarro M.D. 05/13/2023 3:43 PM
[2023-05-13] MEDS: ACETAMINOPHEN 500 MG TAB PO SCH (16:25)
[2023-05-13] MEDS ORDERED: LORATADINE 10 MG TAB PO PRN (16:34)
[2023-05-13] MEDS ORDERED: oxyCODONE HCL IR 5 MG TAB (IMMEDIATE RELEASE) PO PRN (19:35)
[2023-05-13] MEDS: ATORVASTATIN 40 MG TAB PO SCH (19:58)
[2023-05-13] MEDS: SENNA 8.6 MG TAB PO SCH (19:58)
[2023-05-14] MEDS: ACETAMINOPHEN 500 MG TAB PO SCH ×3 (00:02→15:43)
[2023-05-14 07:10] LABS: Hematocrit (blood only) 34.7 % (37.0-47.0); Hemoglobin 11.5 g/dl (12.0-16.0); Mean Corpuscular Hemoglobin 29.9 pg (25.0-34.0); Mean Corpuscular Hgb Conc 33.1 g/dL (32.0-36.0); Mean Corpuscular Volume 90.4 fL (80.0-100.0); Mean Platelet Volume 9.8 fL (9.4-12.4); Platelet Count 238 K/uL (130-400); RDW Coefficient of Variation 12.7 % (11.5-14.5); RDW Standard Deviation 41.6 fL (36.4-46.3); Red Blood Count 3.84 M/uL (4.20-5.40); White Blood Count 7.12 K/ul (4.8-10.8)
[2023-05-14 07:23] LABS: BUN Creatinine Ratio 25.6 (10-20); Calcium 9.1 mg/dl (8.6-10.3); Creatinine Clr Calc Pharmacy 42.6 ml/min; Est GFR (African American) 72.4 ml/min; Est GFR (Non-African American) 62.5 ml/min; Potassium 4.5 mmol/L (3.5-5.1)
[2023-05-14] MEDS ORDERED: PROPOFOL IV EMULSION 10 MG/ML 20 ML VIAL IV ONE (07:38)
[2023-05-14] MEDS ORDERED: ROCURONIUM BROMIDE 10 MG/ML 5 ML VIAL IV ONE (07:38)
[2023-05-14] MEDS ORDERED: LIDOCAINE 2% 2 ML VIAL/AMP(20MG/ML) INFIL ONE (07:38)
[2023-05-14] MEDS ORDERED: fentaNYL citrate PF 100 MCG/2 ML VIAL ONE (07:38)
[2023-05-14] MEDS ORDERED: DEXAMETHASONE SOD INJ 4 MG/ML VIAL ONE (07:38)
[2023-05-14] MEDS ORDERED: ONDANSETRON INJ 2 MG/ML 2 ML VIAL ONE (07:38)
--- NOTE | 2023-05-14 07:41 | Anesthesiology Consultation ---
Date of Service May 14, 2023 Assessment & Plan Chart Review Chart Review: Acceptable Risk for Surgery and Patient NOT seen in Pre Admission Testing Consults Requested none ASA ASA3 Proposed Anesthesia Anesthesia Type: General Regional Laterality: Left Site: Femoral Risk / Benefits Reviewed With: PT / POA / Parent / Guardian, Accepts Plan and Informed Consent Obtained History Surgery Operation Date: 05/14/23 07:30 Proposed Procedures p Open Reduction Internal Fixation Marilyn - Marcos Soto DO Height/Weight Height: 4 ft 11 in Weight: 71.2 kg Allergies Allergy/AdvReac Type Severity Reaction Status Date / Time Penicillins Allergy Mild childhood Verified 09/10/21 10:21 allergy povidone-iodine AdvReac Unknown Hives Verified 09/10/21 10:21 [From Betadine] Medications Home Medications Medication Instructions Recorded Confirmed Last Taken atorvastatin 40 mg tablet 40 mg PO QPM #90 tabs 02/09/19 05/13/23 03/21/21 20:00 cholecalciferol (vitamin D3) 75 3,000 units PO QAM 02/09/19 05/13/23 03/21/21 09:00 mcg (3,000 unit) tablet fluticasone propionate 50 2 sprays intranasal DAILY PRN 02/09/19 05/13/23 Unknown mcg/actuation nasal Allergy Symptoms spray,suspension (Flonase Allergy Relief) hydrocortisone 2.5 % topical cream 1 appln ID DAILY PRN Hemorrhoids 02/09/19 05/13/23 Unknown with perineal applicator (Anusol-HC) hydrocortisone acetate 25 mg 25 mg ID BID PRN Hemorrhoids #28 ea 02/09/19 05/13/23 Unknown rectal suppository loratadine 10 mg capsule 10 mg PO QAM 02/09/19 05/13/23 03/21/21 09:00 magnesium 200 mg tablet 400 mg PO QAM 02/09/19 05/13/23 03/21/21 20:00 zzzgprsxvofl-ieyttzgj-vixxne tablet 1 tab PO QAM 02/09/19 05/13/23 03/21/21 08:00 meclizine 25 mg tablet 25 mg PO Q6 PRN dizziness #30 tabs 02/11/19 05/13/23 03/21/21 20:00 montelukast 10 mg tablet 10 mg PO QAM #30 tabs 02/27/19 05/13/23 03/21/21 20:00 acetaminophen 300 mg-codeine 30 mg 1 tab PO BID PRN Pain 04/27/20 05/13/23 03/21/21 20:00 tablet levothyroxine 100 mcg tablet 100 mcg PO QAM 03/19/21 05/13/23 03/22/21 06:30 lidocaine 5 % topical patch 1 patch topical DAILY PRN Allergy 03/19/21 05/13/23 03/21/21 08:00 Symptoms losartan 100 mg tablet 100 mg PO QAM 03/19/21 05/13/23 03/22/21 06:30 ondansetron 4 mg disintegrating 4 mg PO Q8H 03/19/21 05/13/23 03/22/21 06:30 tablet pantoprazole 20 mg tablet,delayed 20 mg PO QAM 03/19/21 05/13/23 03/22/21 06:30 release sennosides 8.6 mg tablet (senna) 8.6 mg PO HS 03/19/21 05/13/23 03/21/21 20:00 spironolactone 25 mg tablet 25 mg PO QAM 03/19/21 05/13/23 03/22/21 06:30 Medical Marijuana 10 mg PO BID PRN Pain 03/22/21 05/13/23 03/20/21 baclofen 10 mg tablet 10 mg PO BID PRN pain/spasm #30 01/16/23 05/13/23 Unknown tabs denosumab 60 mg/mL subcutaneous 60 mg subcut UD 05/13/23 05/13/23 Unknown syringe (Prolia) Active Medications Generic Name Dose Route Start Last Admin Trade Name Rosaura PRN Reason Stop Dose Admin Acetaminophen 1,000 mg 05/13/23 16:00 05/14/23 00:02 Acetaminophen 500 Mg Tab PO 06/12/23 15:59 1,000 mg Q8H MYNOR Administration Atorvastatin Calcium 40 mg 05/13/23 21:00 05/13/23 19:58 Atorvastatin 40 Mg Tab PO 06/12/23 20:59 40 mg QPM MYNOR Administration Sennosides 8.6 mg 05/13/23 21:00 05/13/23 19:58 Senna 8.6 Mg Tab PO 06/12/23 20:59 8.6 mg HS MYNOR Administration NPO Date Last Intake of Fluids: 05/13/23 Time Last Intake of Fluids: 19:00 Date Last Intake of Solids: 05/13/23 Time Last Intake of Solids: 19:00 Past Medical History Medical History Allergic rhinitis Depression with anxiety no meds currently Gait disturbance Hemorrhoids History of anesthesia reaction woke up during colonoscopy procedure years ago History of basal cell carcinoma neck and back Hypercholesterolemia Hypothyroidism Insomnia Medical marijuana use Mitral regurgitation Osteoporosis Other spondylosis with myelopathy, thoracic region Right asymmetrical SNHL Symptomatic mammary hypertrophy Tricuspid regurgitation Urinary incontinence Vertigo Exercise / Class Metabolic Activity III < 4 Walking/Shop/Light housework Past Family History Family History Mother Cardiac pacemaker Asthma Father Diabetes Coronary arteriosclerosis Sister Crohn's disease Other No family history of adverse response to anesthesia Past Surgical History Surgical History History of back surgery T10-L2 fusion Dr. Moralez History of basal cell carcinoma (BCC) excision History of bilateral cataract extraction History of colonoscopy History of dilatation and curettage multiple History of open reduction and internal fixation (ORIF) procedure left wrist--hardware in place History of tooth extraction all top teeth, most bottom History of total abdominal hysterectomy and bilateral salpingo-oophorectomy History of wisdom tooth extraction Past Anesthesia History No Hx of Anesthesia Complications and No Family Hx of Anesthesia Complications History of PONV No Hx of PONV and No Hx of Motion Sickness Social History Smoking Status: Never smoker Do You Dip or Chew Tobacco: No Hx Alcohol Use: Yes Alcohol type: wine alcohol intake frequency: holidays/special occasions only Hx Substance Use: No substance use type: marijuana Review of Systems ROS Unobtainable: All systems reviewed & are unremarkable except as noted in HPI & below Physical Exam Vital Signs Last Vital Signs Temp 36.7 C 05/14/23 06:58 Pulse 79 05/14/23 06:58 Resp 16 05/14/23 06:58 BP 103/60 05/14/23 06:58 Pulse Ox 94 05/14/23 06:58 O2 Del Method Nasal Cannula 05/14/23 06:58 O2 Flow Rate 1 05/14/23 06:58 Constitutional no acute distress ENMT Mouth: + small oral opening; no TMJ abnormality Thyromental Distance: > or= 3.5 Finger Breadths Mallampati Class: III Neck normal visual inspection and trachea midline; neck extension not limited Respiratory normal respiratory effort Auscultation: lungs clear to auscultation bilaterally Cardiovascular Rate/Rhythm: regular rate and regular rhythm Heart Sounds: no murmur Musculoskeletal Spine: normal cervical ROM Extremities: full ROM of extremities Neurologic moves all extremities Psychiatric Orientation: alert and oriented x 3 Testing Laboratory Results 05/14/23 06:18 05/14/23 06:18 Echocardiogram Date: 10/07/19 EF: 65 LV Function: normal
[2023-05-14] MEDS ORDERED: ROPIVACAINE 0.5% 5 MG/ML 30 ML VIAL ONE (07:45)
[2023-05-14] MEDS ORDERED: ACETAMINOPHEN 1000 MG/100 ML IV IV ONE (07:45)
[2023-05-14] MEDS ORDERED: ATROPINE SULFATE 0.1 MG/ML 10ML SYR IV PRN (07:46)
[2023-05-14] MEDS ORDERED: fentaNYL citrate PF 100 MCG/2 ML VIAL IV PRN (07:46)
[2023-05-14] MEDS ORDERED: ONDANSETRON INJ 2 MG/ML 2 ML VIAL IV PRN (07:46)
[2023-05-14] MEDS ORDERED: ePHEDrine sulfate 50 MG/ML AMP IV PRN (07:46)
--- NOTE | 2023-05-14 07:46 | History & Physical Bridge Note ---
Date of Service May 14, 2023 History & Physical Bridge Note I have examined the patient, reviewed the History & Physical and in the interval since the performance of the History & Physical I have noted the following changes of clinical significance: no changes noted
--- NOTE | 2023-05-14 08:00 | Orthopedic Consultation ---
Date of Consultation May 14, 2023 Assessment & Plan (1) Displaced comminuted fracture of left patella: Patient will undergo open reduction internal fixation left comminuted, displaced, patella fracture. She will be placed into a knee immobilizer. WBAT in knee immobilizer w/ walker/wheelchair X 6 weeks. VTE prophylaxis with ELLY hose and SCDs while in bed. Recommend aspirin 81 mg 1 p.o. twice daily x4 weeks. Ice to the left knee. Social service for discharge planning. Thank you for the opportunity to consult in the care of this patient. Marcos Soto DO [facility] [place] (2) Left anterior knee pain: History of Present Illness Reason for Consultation: Acute comminuted left patella fracture sustained after a fall directly onto her left knee yesterday. Attending Physician: Kristie Ham DO History of Present Illness This pleasant 82-year-old female was walking down a ramp with her walker yesterday and the walker "got away from her" causing her to fall directly onto her left knee. She was unable to ambulate. She had no other associated injuries. She was transported to [facility] ER where she was evaluated, x-rayed and CT of left knee was performed. She was admitted to the hospitalist service for evaluation and optimization with consultation made to o rthopedics for management of the patella fracture. Allergies Allergy/AdvReac Type Severity Reaction Status Date / Time Penicillins Allergy Mild childhood Verified 09/10/21 10:21 allergy povidone-iodine AdvReac Unknown Hives Verified 09/10/21 10:21 [From Betadine] Home Medications Medication Instructions Recorded Confirmed Type atorvastatin 40 mg tablet 40 mg PO QPM #90 tabs 02/09/19 05/13/23 History cholecalciferol (vitamin D3) 75 3,000 units PO QAM 02/09/19 05/13/23 History mcg (3,000 unit) tablet fluticasone propionate 50 2 sprays intranasal DAILY PRN 02/09/19 05/13/23 History mcg/actuation nasal Allergy Symptoms spray,suspension (Flonase Allergy Relief) hydrocortisone 2.5 % topical cream 1 appln IA DAILY PRN Hemorrhoids 02/09/19 05/13/23 History with perineal applicator (Anusol-HC) hydrocortisone acetate 25 mg 25 mg IA BID PRN Hemorrhoids #28 ea 02/09/19 05/13/23 History rectal suppository loratadine 10 mg capsule 10 mg PO QAM 02/09/19 05/13/23 History magnesium 200 mg tablet 400 mg PO QAM 02/09/19 05/13/23 History mfthzrigdpab-uwxfxqvd-bzfjce tablet 1 tab PO QAM 02/09/19 05/13/23 History meclizine 25 mg tablet 25 mg PO Q6 PRN dizziness #30 tabs 02/11/19 05/13/23 Rx montelukast 10 mg tablet 10 mg PO QAM #30 tabs 02/27/19 05/13/23 History acetaminophen 300 mg-codeine 30 mg 1 tab PO BID PRN Pain 04/27/20 05/13/23 History tablet levothyroxine 100 mcg tablet 100 mcg PO QAM 03/19/21 05/13/23 History lidocaine 5 % topical patch 1 patch topical DAILY PRN Allergy 03/19/21 05/13/23 History Symptoms losartan 100 mg tablet 100 mg PO QAM 03/19/21 05/13/23 History ondansetron 4 mg disintegrating 4 mg PO Q8H 03/19/21 05/13/23 History tablet pantoprazole 20 mg tablet,delayed 20 mg PO QAM 03/19/21 05/13/23 History release sennosides 8.6 mg tablet (senna) 8.6 mg PO HS 03/19/21 05/13/23 History spironolactone 25 mg tablet 25 mg PO QAM 03/19/21 05/13/23 History Medical Marijuana 10 mg PO BID PRN Pain 03/22/21 05/13/23 History baclofen 10 mg tablet 10 mg PO BID PRN pain/spasm #30 01/16/23 05/13/23 Rx tabs denosumab 60 mg/mL subcutaneous 60 mg subcut UD 05/13/23 05/13/23 History syringe (Prolia) Patient History Medical History Allergic rhinitis Depression with anxiety no meds currently Gait disturbance Hemorrhoids History of anesthesia reaction woke up during colonoscopy procedure years ago History of basal cell carcinoma neck and back Hypercholesterolemia Hypothyroidism Insomnia Medical marijuana use Mitral regurgitation Osteoporosis Other spondylosis with myelopathy, thoracic region Right asymmetrical SNHL Symptomatic mammary hypertrophy Tricuspid regurgitation Urinary incontinence Vertigo Surgical History History of back surgery T10-L2 fusion Dr. Moralez History of basal cell carcinoma (BCC) excision History of bilateral cataract extraction History of colonoscopy History of dilatation and curettage multiple History of open reduction and internal fixation (ORIF) procedure left wrist--hardware in place History of tooth extraction all top teeth, most bottom History of total abdominal hysterectomy and bilateral salpingo-oophorectomy History of wisdom tooth extraction Family History Mother Cardiac pacemaker Asthma Father Diabetes Coronary arteriosclerosis Sister Crohn's disease Other No family history of adverse response to anesthesia Social History Smoking Status: Never smoker Second Hand Exposure: No; Do You Dip or Chew Tobacco: No; Hx Alcohol Use: Yes Alcohol type: wine Hx Substance Use: No Preferred Language: French Communication Ability: Effective Visual Impairment: No Limitations Hearing Ability: Hard of Hearing Stucco Applicator Required: No Beliefs That Will Affect Care: None Current Living Situation: Alone Current Living Situation Comment: living at [facility] current occupational status: retired Other Information That Helps Us Care for You: No Feels Safe at Home: Yes Safety Concerns: Feels Safe At This Time Assistive Devices: Denture - Upper and Walker Physical Exam Constitutional: WD/WN, vitals as above Eyes: PERRL, conjunctivae normal, anicteric sclerae ENMT: external ear and nose normal, oropharynx normal Neck: trachea midline, no thyromegaly Respiratory: normal respiratory effort, lungs clear to auscultation Cardiovascular: Regular rate and rhythm. Gastrointestinal (Abdomen): Abdomen soft, nontender and nondistended. Musculoskeletal: Knee immobilizer left lower extremity. Skin is warm dry and intact. Ecchymosis overlying the left anterior knee. Positive tenderness left anterior patella. Positive effusion left knee. Limited active and passive range of motion left knee due to pain, swelling and knee immobilizer. Pedal pulses are palpable. Feet are warm. Sensation intact. Skin: no rashes, warm and dry Neurologic: PERRL, EOMI, accommodation nl, no face palsy, no dysarthria Psychiatric: A+Ox3, euthymic affect Lymphatic: no cervical or axillary lymphadenopathy Results & Data Vital Signs (Past 12 Hours) Vital Signs Temp Pulse Resp BP Pulse Ox O2 Del Method O2 Flow Rate 05/14/23 06:58 36.7 C 79 16 103/60 94 Nasal Cannula 1 05/13/23 20:00 Nasal Cannula 1 Diagnostic Findings Radiographs and CT scan reviewed left knee noting comminuted, displaced, stellate fracture of the left patella. Knee effusion and prepatellar bursal effusion also appreciated. Mild osteoarthritis.
[2023-05-14] MEDS ORDERED: ceFAZolin 330 MG/ML 1 GM VIAL ONE (08:24)
--- NOTE | 2023-05-14 08:50 | Hospitalist Progress Note ---
Date of Service May 14, 2023 Assessment & Plan (1) Fall: (2) Patellar fracture: (3) Gait disturbance: (4) HTN (hypertension): (5) Hypothyroidism: (6) Osteoporosis: (7) History of back surgery: Plan This is an 82-year-old female with PMH of hypertension, CKD 3, anxiety, hy pothyroidism, dyslipidemia, osteoporosis who presents after a fall and was found to have an acute displaced left patellar fracture. Mechanical fall Displaced left patellar fracture baseline gait disturbance from chronic back pain requiring walker contributing to fall Knee CT acute comminuted, moderately displaced, left patellar fracture, as described above. Numerous bone fragments. Associated prepatellar contusion and small hemarthrosis s/p ORIF of left knee today Cont pain control, knee in immobilizer Activity per Ortho provider PT/OT per ortho, wound care per ortho HTN Chronic; stable. Normotensive on admission. Continue losartan, resume spironolactone per home regimen. CKD III Cr 0.90, at baseline. Daily BMP Hypothyroidism chronic, stable. Continue levothyroxine HLD Continue statin DVT Ppx: SCDs Code status: FULL PCP: Saran Schneider Dispo: Admitted to med/surg DO Tiffany Iverson Hospitalist Admission and Anticipated Discharge Date Admission Date: May 13, 2023 Subjective 82-year-old female presents with fall and fracture of left patella. She is status post open reduction internal fixation left comminuted displaced patella fracture today. She was placed into a knee immobilizer. Postoperatively she is doing well and remains on 2 L/min of supplemental oxygen via nasal cannula. She is slightly groggy but oriented. Reports her pain is well controlled. Physical Exam Physical Exam: CONSTITUTIONAL: WNWD, vitals as above, generally well-appearing, NAD EYES: pupils are round and equal bilaterally, normal conjunctivae, no scleral icterus ENT: external ear and nose normal, MMM NECK: trachea midline RESPIRATORY: clear to auscultation bilaterally with decreased breath sounds at the bases, no crackles, rales or wheezes, normal respiratory effort CARDIOVASCULAR: regular rate and rhythm, S1 and 2 heard without murmurs, gallops or rubs, no JVD, no peripheral edema CHEST: inspection of chest was normal GASTROINTESTINAL: soft, nontender, ND, no guarding MUSCULOSKELETAL: strength 5/5 throughout, head is normocephalic and atraumatic, L knee in immobilizer, LLE WWP SKIN: warm and dry, NEUROLOGIC: CN 2-12 grossly intact, no sensory deficit, normal cognition, normal speech, no tremor PSYCHIATRIC: alert cooperative and oriented to person, place and time. Euthymic mood, makes good eye contact, language grossly intact, recent and remote memory grossly intact. Results & Data Results & Data Vital Signs (Past 12 Hours) Vital Signs Temp Pulse Resp BP Pulse Ox O2 Del Method O2 Flow Rate 05/14/23 06:58 36.7 C 79 16 103/60 94 Nasal Cannula 1 Laboratory Results Short CBC 05/13/23 05/14/23 Range/Units 11:47 06:18 WBC 6.37 7.12 (4.8-10.8) K/ul Hgb 13.4 11.5 L (12.0-16.0) g/dl Hct 39.9 34.7 L (37.0-47.0) % Plt Count 281 238 (130-400) K/uL BMP 05/13/23 05/14/23 11:47 06:18 Sodium 141 141 Potassium 4.4 4.5 Chloride 109 H 110 H Carbon Dioxide 27 27 BUN 18 22 Creatinine 0.90 0.86 Glucose 106 H 107 H Calcium 10.1 9.1 Liver Function 05/13/23 Range/Units 11:47 Total Bilirubin 0.4 (0.2-1.0) mg/dl AST 19 (13-39) U/L ALT 15 (7-52) U/L Alkaline Phosphatase 66 (34-104) U/L Albumin 4.3 (3.4-5.0) gm/dl Medications Administered Current Inpatient Medications Acetaminophen (Acetaminophen 500 Mg Tab) 1,000 mg PO Q8H MYNOR Stop: 06/12/23 15:59 Last Admin: 05/14/23 00:02 Dose: 1,000 mg Atorvastatin Calcium (Atorvastatin 40 Mg Tab) 40 mg PO QPM MYNOR Stop: 06/12/23 20:59 Last Admin: 05/13/23 19:58 Dose: 40 mg Atropine Sulfate (Atropine Sulfate 0.1 Mg/Ml 10ml Syr) 0.5 mg IV Q1M PRN PRN Reason: PACU Use-HR<40 &/or Bradycardi Stop: 05/14/23 15:46 Ephedrine Sulfate (Ephedrine Sulfate 50 Mg/Ml Amp) 5 mg IV Q5M PRN PRN Reason: PACU Use Only-SBP<90 mmHg Stop: 05/14/23 15:46 Fentanyl Citrate (Fentanyl Citrate Pf 100 Mcg/2 Ml Vial) 25 mcg IV Q5M PRN PRN Reason: PACU Use Only-Pain Stop: 05/14/23 15:46 Levothyroxine Sodium (Levothyroxine Sodium 100 Mcg Tablet) [facility] Stop: 06/14/23 06:29 Loratadine (Loratadine 10 Mg Tab) 10 mg PO QA PRN PRN Reason: Allergy Symptoms Stop: 06/14/23 08:59 Losartan Potassium (Losartan Potassium 50 Mg Tab) [facility] [place]: 06/13/23 08:59 Magnesium Oxide (Magnesium Oxide 400 Mg Tab) 400 [facility] [place]: 06/14/23 08:59 Meclizine HCl (Meclizine Hcl 25 Mg Tab) 25 mg PO Q6 PRN PRN Reason: dizziness Stop: 06/14/23 16:33 Montelukast Sodium (Montelukast Sodium 10 Mg Tablet) 10 [facility] [place]: 06/14/23 08:59 Multivitamins/Minerals (Cerovite Adv Formula Tab) 1 tab [facility] [place]: 06/14/23 08:59 Ondansetron HCl (Ondansetron Inj 2 Mg/Ml 2 Ml Vial) 4 mg IV Q6H PRN PRN Reason: Nausea Stop: 06/12/23 15:21 Ondansetron HCl (Ondansetron Inj 2 Mg/Ml 2 Ml Vial) 4 mg IV ONCE PRN PRN Reason: PACU Use Only-Nausea/Vomiting Stop: 05/14/23 15:46 Oxycodone HCl (Oxycodone Hcl Ir 5 Mg Tab (Immediate Release)) 5 mg PO Q6H PRN PRN Reason: Severe Pain (Scale 7, 8, 9,10) Stop: 05/27/23 19:34 Pantoprazole Sodium (Pantoprazole 40 Mg Tab) 40 [facility] [place]: 06/14/23 08:59 Polyethylene Glycol (Polyethylene (Miralax) 17 Gm Pack) 17 gm PO DAILY PRN PRN Reason: Constipation Stop: 06/12/23 15:21 Sennosides (Senna 8.6 Mg Tab) 8.6 mg PO HS MYNOR Stop: 06/12/23 20:59 Last Admin: 05/13/23 19:58 Dose: 8.6 mg Vitamin D (Cholecalciferol 1,000 Units 25 Mcg Tab) 3,000 units PO QAM MYNOR Stop: 06/13/23 08:59 (1) Fall Encounter type: initial encounter Qualified Code(s): W19.XXXA - Unspecified fall, initial encounter (2) Patellar fracture Encounter type: initial encounter Fracture alignment: displaced Fracture morphology: comminuted Fracture type: closed Laterality: left Qualified Code(s): S82.042A - Displaced comminuted fracture of left patella, initial encounter for closed fracture (4) HTN (hypertension) Hypertension type: primary hypertension Qualified Code(s): I10 - Essential (primary) hypertension (5) Hypothyroidism Hypothyroidism type: unspecified Qualified Code(s): E03.9 - Hypothyroidism, unspecified
[2023-05-14] MEDS ORDERED: ceFAZolin 2000MG 2,000 MG/15 ML SYR IV ONE (09:25)
[2023-05-14] MEDS ORDERED: SUGAMMADEX SODIUM 200 MG/2 ML VIAL IV ONE (09:42)
[2023-05-14] MEDS ORDERED: ESMOLOL HCL INJ 10 MG/ML 10ML VIAL IV ONE (09:43)
--- NOTE | 2023-05-14 10:53 | Operative Report ---
Post Operative Report Pre & Post Diagnosis Operation Date: 05/14/23 07:30 Pre-Op Diagnosis: Displaced severely comminuted fracture of left patella, BMI > 30 Post-Op Diagnosis: Displaced severely comminuted fracture of left patella, BMI > 30 I identified the patient and participated in the time-out.: Yes Procedure Operation Date: 05/14/23 07:30 Actual Procedures p Open Reduction Internal Fixation Left displaced, severely comminuted fracture patella(Left) - Marcos Soto DO Surgeon Marcos Soto DO Statistics Intern None Estimated Blood Loss 20 Findings Consistent with Post-Op Diagnosis Specimens None Anesthesia Type General Regional Complications none Disposition Accompanied Patient To Recovery: No Indications This pleasant 82-year-old female sustained a direct fall onto her left patella yesterday while ambulating on her walker. The walker slipped away from her and she fell directly onto the left knee on pavement. She was unable to ambulate and presented to [facility] for care and management. She was admitted to the hospitalist service after x-rays and CT scan demonstrated severely comminuted, displaced left patella fracture. Patient was scheduled for ORIF left patella fracture as indicated. Description of Procedure All potential risks, benefits, complications, alternatives, rehab, potential for incomplete relief of symptoms, need for surgery, DVT, PE, , persistent pain, swelling, scarring, weakness, neurovascular injury, wound complications, hardware failure, nonunion, malunion and bone fracture were discussed with the patient and family. The patient and family decided to proceed with the procedure as indicated. DESCRIPTION OF PROCEDURE: The patient was taken to the Operating Suite and placed supine on the Operating Room table after the patient had been administered a femoral nerve block in the preop holding area. The patient was anesthetized and LMA placed. The proper operative site was identified and the consent was reviewed. Surgical timeout was performed. The tourniquet was placed high on the operative left lower extremity. The left lower extremity was then sterilely prepped and draped in the usual fashion. Elevated and exsanguinated with an Esmarch bandage. Tourniquet inflated to 325 mmHg. Next a midline 10-blade scalpel incision was made directly over the midline of the patella. The incision was deepened through the subcutaneous tissue and meticulous hemostasis was achieved with electrocautery. Small, full-thickness skin flaps were developed taking care to avoid neurovascular bundles. The severely comminuted and displaced patella fracture was clearly visualized. A moderate amount of coagulated venous blood was suctioned from the joint. The joint was copiously irrigated with sterile saline with Ancef until clear. The stellate, severely comminuted fracture fragments were carefully debrided with a dental pick and irrigated until clear. The careful identification, debridement and reassembly of the multiple fracture fragments took an unusually long time to perform an added substantial time to the surgical case. The level of comminution and complexity of the fracture increased surgical effort and time to achieve satisfactory reduction of the multiple fracture fragments. Next two 1.6 mm K wires were driven through the inferior pole of the fractured patella through the comminution into the superior pole of the patella. This was performed under live fluoroscopic control. Next the 14-gauge Angiocath was passed along the superior margin of the patella and an 18-gauge wire was passed through the Angiocath. Next the Angiocath was directed along the inferior pole of the patella and after crossing the 18-gauge wire, the wire was then passed inferior to the patella through the Angiocath under live fluoroscopic assistance. Next the wire was carefully twisted to compress and reduce the fracture fragments under live fluoroscopic assistance. The superior K-wires were bent and cut and then tamped with a bone tamp to bury the tips in the superior soft tissue. Next the inferior K wires were cut and buried in soft tissue medial and lateral. The 18-gauge wire was then twisted to tighten, cut and then buried in the soft tissue. Near anatomic alignment and fixation was achieved. Next the surgical site was copiously irrigated with sterile saline. Next the medial and lateral retinaculum, anterior retinaculum and bursal tissue was closed using interrupted #5 FiberWire suture. The retinacular tissue was closed using #1 Vicryl sutures. The dermis was closed using buried interrupted 2-0 Vicryl and the skin closed with skin mitali. A sterile compressive dressing was applied from the ankle to the groin and overwrapped with Domenic wrap. A knee immobilizer was applied. The tourniquet was released. The patient was awakened and taken to recovery in stable condition. I attest to the content of the Intraoperative Record and any orders documented therein. Any exceptions are noted below.
--- NOTE | 2023-05-14 11:34 | Anesthesiology Progress Note ---
Date of Service May 14, 2023 Anesthesia Post Procedure Vital Signs Vital Signs: Temp Pulse Pulse Pulse Pulse Resp BP 05/14/23 11:23 05/14/23 10:56 36.7 C 79 16 05/14/23 10:45 36.7 C 74 18 05/14/23 10:35 80 20 05/14/23 10:25 82 22 05/14/23 10:18 36.7 C 91 H 19 05/14/23 06:58 36.7 C 79 16 05/13/23 20:00 05/13/23 19:26 36.3 C L 68 18 05/13/23 16:29 36.5 C 69 05/13/23 15:28 36.5 C 69 05/13/23 15:24 36.5 C 69 05/13/23 14:00 71 18 05/13/23 12:31 05/13/23 12:31 05/13/23 12:05 84 05/13/23 11:51 05/13/23 11:35 74 18 05/13/23 11:35 36.4 C L 78 18 139/65 BP Pulse Ox O2 Del Method O2 Flow Rate 05/14/23 11:23 Nasal Cannula 2 05/14/23 10:56 110/61 94 Nasal Cannula 2 05/14/23 10:45 126/52 L 93 Nasal Cannula 3 05/14/23 10:35 108/63 94 Oxymask 4 05/14/23 10:25 129/56 L 97 Oxymask 6 05/14/23 10:18 143/55 H 93 Oxymask 8 05/14/23 06:58 103/60 94 Nasal Cannula 1 05/13/23 20:00 Nasal Cannula 1 05/13/23 19:26 103/52 L 92 Nasal Cannula 1 05/13/23 16:29 117/68 98 Nasal Cannula 2 05/13/23 15:28 117/68 98 Nasal Cannula 2 05/13/23 15:24 117/68 98 Nasal Cannula 2 05/13/23 14:00 105/54 L 98 Room Air 05/13/23 12:31 99 Nasal Cannula 2 05/13/23 12:31 87 L Room Air 05/13/23 12:05 05/13/23 11:51 94 Room Air 05/13/23 11:35 139/65 93 Room Air 05/13/23 11:35 94 Room Air Pain Intensity Left Knee: Pain Intensity: 0 Transfer of Care Handoff Completed per policy Notes Mental Status: alert / awake / arousable Patient Amnestic to Procedure: Yes Nausea / Vomiting: adequately controlled Pain: adequately controlled Airway Patency, RR, SpO2: stable & adequate BP & HR: stable & adequate Hydration State: stable & adequate Anesthetic Complications: no major complications apparent and Pt Satisfied with anesthetic care
[2023-05-14] MEDS: LOSARTAN POTASSIUM 50 MG TAB PO SCH (11:49)
[2023-05-14] MEDS: CHOLECALCIFEROL 1,000 UNITS 25 MCG TAB PO SCH (11:49)
--- NOTE | 2023-05-14 13:04 | XRay Report ---
XR chest 1V portable CLINICAL HISTORY: Change in lung sounds TECHNIQUE: Single frontal radiograph of the chest was obtained. Comparison: Comparison is made to chest radiograph 05/13/2023 FINDINGS: Posterior fixation hardware is seen in the thoracolumbar spine. Cardiomegaly is noted. The lungs are clear. No evidence of pleural effusion or pneumothorax. IMPRESSION: No acute abnormalities and in particular no radiographic evidence of pneumonia. ACT 112: Negative or not required by law. Electronically signed by: Jeet Dahl M.D. 05/14/2023 1:03 PM
--- NOTE | 2023-05-14 14:08 | XRay Report ---
XR knee LT 3V CLINICAL HISTORY: Postoperative ORIF TECHNIQUE: 3 views of the right knee were obtained. Comparison: Comparison is made to knee radiographs 03/13/2023 FINDINGS: Postoperative appearance of internal fixation of the previously noted patellar fracture. Soft tissue swelling and surgical mitali are seen with a small amount of subcutaneous emphysema which is likely postprocedural. IMPRESSION: Expected postoperative appearance of patellar fixation. ACT 112: Negative or not required by law. Electronically signed by: Jeet Dahl M.D. 05/14/2023 2:07 PM
--- NOTE | 2023-05-14 16:38 | Fluoroscopy Report ---
FL knee LT 1 or 2V CLINICAL HISTORY: ORIF LT PATELLA TECHNIQUE: 2 views were obtained with the C-arm in the OR with the above procedure. Total fluoroscopy time was 82.8 seconds. Radiation dose was 3.68 mGy. Comparison: Comparison is made to knee radiographs 05/13/2023 FINDINGS/IMPRESSION: Intraoperative images were obtained of open reduction internal fixation of the l eft patellar fracture. Please correlate with intraoperative fluoroscopy and operative report. ACT 112: Negative or not required by law. Electronically signed by: Jeet Dahl M.D. 05/14/2023 4:37 PM
[2023-05-14] MEDS: ceFAZolin 2000MG 2,000 MG/15 ML SYR IV SCH (17:56)
[2023-05-14] MEDS: SENNA 8.6 MG TAB PO SCH (21:09)
[2023-05-14] MEDS: ATORVASTATIN 40 MG TAB PO SCH (21:09)
[2023-05-15] MEDS: ceFAZolin 2000MG 2,000 MG/15 ML SYR IV SCH ×2 (00:50→10:04)
[2023-05-15] MEDS: ACETAMINOPHEN 500 MG TAB PO SCH ×3 (00:50→16:09)
[2023-05-15] MEDS: LEVOTHYROXINE SODIUM 100 MCG TABLET PO SCH (05:33)
[2023-05-15 08:19] LABS: Hematocrit (blood only) 34.5 % (37.0-47.0); Hemoglobin 11.9 g/dl (12.0-16.0); Mean Corpuscular Hemoglobin 30.4 pg (25.0-34.0); Mean Corpuscular Hgb Conc 34.5 g/dL (32.0-36.0); Platelet Count 256 K/uL (130-400); RDW Coefficient of Variation 12.5 % (11.5-14.5); RDW Standard Deviation 40.4 fL (36.4-46.3); Red Blood Count 3.92 M/uL (4.20-5.40); White Blood Count 10.86 K/ul (4.8-10.8)
[2023-05-15] MEDS: SPIRONOLACTONE 25 MG TAB PO SCH (08:27)
[2023-05-15] MEDS: CHOLECALCIFEROL 1,000 UNITS 25 MCG TAB PO SCH (08:28)
[2023-05-15] MEDS: MONTELUKAST SODIUM 10 MG TABLET PO SCH (08:28)
[2023-05-15] MEDS: CEROVITE ADV FORMULA TAB PO SCH (08:28)
[2023-05-15] MEDS: ASPIRIN 81 MG ECTAB PO SCH ×2 (08:28→19:36)
[2023-05-15] MEDS: LOSARTAN POTASSIUM 50 MG TAB PO SCH (08:28)
[2023-05-15] MEDS: MAGNESIUM OXIDE 400 MG TAB PO SCH (08:28)
[2023-05-15] MEDS: PANTOprazole 40 MG TAB PO SCH (08:28)
[2023-05-15 08:40] LABS: BUN Creatinine Ratio 27.5 (10-20); Calcium 8.9 mg/dl (8.6-10.3); Creatinine Clr Calc Pharmacy 40.2 ml/min; Est GFR (African American) 67.6 ml/min; Est GFR (Non-African American) 58.3 ml/min; Potassium 4.4 mmol/L (3.5-5.1)
--- NOTE | 2023-05-15 10:50 | Hospitalist Progress Note ---
Date of Service May 15, 2023 Assessment & Plan (1) Fall: (2) Patellar fracture: (3) Gait disturbance: (4) HTN (hypertension): (5) Hypothyroidism: (6) Osteoporosis: (7) History of back surgery: Plan This is an 82-year-old female with PMH of hypertension, CKD 3, anxiety, hy pothyroidism, dyslipidemia, osteoporosis who presents after a fall and was found to have an acute displaced left patellar fracture. Mechanical fall Displaced left patellar fracture baseline gait disturbance from chronic back pain requiring walker contributing to fall Knee CT acute comminuted, moderately displaced, left patellar fracture, as described above. Numerous bone fragments. Associated prepatellar contusion and small hemarthrosis POD ORIF L patellar fx - displaced POD #1, Dr. Schofield, EBL 20ml Cont pain control, knee in immobilizer per ortho WBAT in knee immobilizer w/ walker/wheelchair X 6 weeks. She will need ASA BID x 4 weeks and ICE to L knee PT/OT per ortho, wound care per ortho Senna S daily ordered HTN Chronic; stable. Normotensive on admission. Continue losartan, resume spironolactone per home regimen. Parameters placed on BP meds CKD III Cr 0.90, at baseline. Daily BMP chronic, stable Hypothyroidism chronic, stable. Continue levothyroxine HLD Continue statin chronic, stable Anemia very mild, likely dilutional hgb 11.9, pre op 13 DVT Ppx: SCDs, ASA BID x [address] Soto through 06/11 Code status: FULL PCP: Saran Schneider Dispo: Admitted to med/surg, PT/OT ordered, discussed with nursing to work on weaning oxygen, prabhakar removal if able, CM on board Pt was seen and examined in collaboration with Dr. Ham, please see addendum A total of 55 was spent coordinating, documenting, and providing care for this patient excluding time spent in the performance of separately billed services. This included personally viewing all current laboratories and imaging studies, medication reconciliation, outpatient chart review, and discussion with specialists. Admission and Anticipated Discharge Date Admission Date: May 13, 2023 Supervising Physician Co-Signing Physician Notes I have seen and examined the patient and have discussed the case with the provider above. I agree with the assessment and plan as stated. DO Jitendra Subjective Patient was seen and examined in room 375 bed 2. Follow-up dislocated left patellar fracture status post ORIF. She underwent surgical intervention yesterday. She tolerated the procedure well. She denies any significant lower extremity pain. She denies fever, chills, sweats, lightheadedness, dizziness, chest pain, shortness breath, nausea, vomiting or abdominal pain. She has not yet had a bowel movement and denies any flatus. She states she has caregivers 5 days a week at home. Review of Systems Review of Systems: All systems reviewed & are unremarkable except as noted in HPI & below Physical Exam Physical Exam: Gen: WD/WN, elderly, F NAD, A&O x3, sitting up in bed HEENT: Normocephalic, atraumatic, conjunctivae moist, sclerae anicteric, mucous membranes moist. Lung: Clear to Auscultation bilaterally, no wheezes/rales/rhonchi Heart: Regular rate, regular rhythm, no murmurs, rubs, or gallops Abdomen: Soft, NT, ND +BS x 4 Extremities: LLE dressing CDI, NVI distally, no edema or erythema Skin: Warm, no rash, negative turgor. Results & Data Results & Data Vital Signs (Past 12 Hours) Vital Signs Temp Pulse Resp BP BP Pulse Ox O2 Del Method 05/15/23 10:34 Nasal Cannula 05/15/23 07:23 36.4 C L 77 16 118/56 L 95 Nasal Cannula 05/14/23 23:46 36.4 C L 77 18 119/69 93 Nasal Cannula O2 Flow Rate 05/15/23 10:34 2 05/15/23 07:23 2 05/14/23 23:46 2 Medications Administered Current Inpatient Medications Acetaminophen (Acetaminophen 500 Mg Tab) 1,000 mg PO Q8H [facility] Stop: 06/12/23 15:59 Last Admin: 05/15/23 08:28 Dose: 1,000 mg Aspirin (Aspirin 81 Mg Ectab) 81 mg PO BID [facility] Stop: 06/14/23 08:59 Last Admin: 05/15/23 08:28 Dose: 81 mg Atorvastatin Calcium (Atorvastatin 40 Mg Tab) 40 mg PO QPM [facility] Stop: 06/12/23 20:59 Last Admin: 05/14/23 21:09 Dose: 40 mg Cefazolin Sodium (Ancef 2000mg) 2,000 mg in 15 mls @ 3.75 mls/min IV Q8H [facility]; Protocol Stop: 05/15/23 11:06 Last Admin: 05/15/23 10:04 Dose: 3.75 mls/min Levothyroxine Sodium (Levothyroxine Sodium 100 Mcg Tablet) 100 mcg PO DAILYBB [facility] Stop: 06/14/23 06:29 Last Admin: 05/15/23 05:33 Dose: 100 mcg Loratadine (Loratadine 10 Mg Tab) 10 mg PO [facility] PRN PRN Reason: Allergy Symptoms Stop: 06/14/23 08:59 Losartan Potassium (Losartan Potassium 50 Mg Tab) 100 mg PO [facility] Stop: 06/13/23 08:59 Last Admin: 05/15/23 08:28 Dose: 100 mg Magnesium Oxide (Magnesium Oxide 400 Mg Tab) 400 mg PO [facility] Stop: 06/14/23 08:59 Last Admin: 05/15/23 08:28 Dose: 400 mg Meclizine HCl (Meclizine Hcl 25 Mg Tab) 25 mg PO Q6 PRN PRN Reason: dizziness Stop: 06/14/23 16:33 Montelukast Sodium (Montelukast Sodium 10 Mg Tablet) 10 mg PO [facility] Stop: 06/14/23 08:59 Last Admin: 05/15/23 08:28 Dose: 10 mg Multivitamins/Minerals (Cerovite Adv Formula Tab) 1 tab PO [facility] Stop: 06/14/23 08:59 Last Admin: 05/15/23 08:28 Dose: 1 tab Ondansetron HCl (Ondansetron Inj 2 Mg/Ml 2 Ml Vial) 4 mg IV Q6H PRN PRN Reason: Nausea Stop: 06/12/23 15:21 Oxycodone HCl (Oxycodone Hcl Ir 5 Mg Tab (Immediate Release)) 5 mg PO Q6H PRN PRN Reason: Severe Pain (Scale 7, 8, 9,10) Stop: 05/27/23 19:34 Pantoprazole Sodium (Pantoprazole 40 Mg Tab) 40 mg PO [facility] Stop: 06/14/23 08:59 Last Admin: 05/15/23 08:28 Dose: 40 mg Polyethylene Glycol (Polyethylene (Miralax) 17 Gm Pack) 17 gm PO DAILY PRN PRN Reason: Constipation Stop: 06/12/23 15:21 Sennosides (Senna 8.6 Mg Tab) 8.6 mg PO HS [facility] Stop: 06/12/23 20:59 Last Admin: 05/14/23 21:09 Dose: 8.6 mg Spironolactone (Spironolactone 25 Mg Tab) 25 mg PO QAM [facility] Stop: 06/14/23 08:59 Last Admin: 05/15/23 08:27 Dose: 25 mg Vitamin D (Cholecalciferol 1,000 Units 25 Mcg Tab) 3,000 units PO QAM [facility] Stop: 06/13/23 08:59 Last Admin: 05/15/23 08:28 Dose: 3,000 units (1) Fall Encounter type: initial encounter Qualified Code(s): W19.XXXA - Unspecified fall, initial encounter (2) Patellar fracture Encounter type: initial encounter Fracture alignment: displaced Fracture morphology: comminuted Fracture type: closed Laterality: left Qualified Code(s): S82.042A - Displaced comminuted fracture of left patella, initial encounter for closed fracture (4) HTN (hypertension) Hypertension type: primary hypertension Qualified Code(s): I10 - Essential (primary) hypertension (5) Hypothyroidism Hypothyroidism type: unspecified Qualified Code(s): E03.9 - Hypothyroidism, unspecified
[2023-05-15] MEDS ORDERED: oxyCODONE HCL IR 5 MG TAB (IMMEDIATE RELEASE) PO STA (11:01)
[2023-05-15] MEDS: DOCUSATE SODIUM/SENNA 50/8.6MG TAB PO SCH (11:14)
[2023-05-15] MEDS ORDERED: KETOROLAC TROMETHAMINE 15 MG/ML VIAL IV ONE (13:38)
--- NOTE | 2023-05-15 15:03 | Orthopedic Progress Note ---
Date of Service May 15, 2023 Assessment & Plan (1) Displaced comminuted fracture of left patella: Plan: Postop day #1 status post open reduction internal fixation left comminuted, displaced, patella fracture. Continue use of left knee immobilizer. WBAT in knee immobilizer w/ walker/wheelchair X 6 weeks. VTE prophylaxis with ELLY hose and SCDs while in bed. Recommend aspirin 81 mg 1 p.o. twice daily x4 weeks. Ice to the left knee. May begin PT/OT for transfers and gait training. Maintain partial weightbearing left lower extremity in knee immobilizer. Sterile dry dressing change in a.m. by nursing staff. Social service for discharge planning. Thank you for the opportunity to consult in the care of this patient. Marcos Soto DO [facility] (2) Left anterior knee pain: Admission and Anticipated Discharge Date Admission Date: May 13, 2023 Subjective Patient seen and examined while on rounds. Patient awake and alert and resting in her hospital bed. Patient conversant. Pain well controlled. Tolerated up to bedside earlier today. Physical Exam Constitutional: WD/WN, vitals as above Eyes: PERRL, conjunctivae normal, anicteric sclerae ENMT: external ear and nose normal, oropharynx normal Neck: trachea midline, no thyromegaly Respiratory: normal respiratory effort, lungs clear to auscultation Cardiovascular: Adequate perfusion x4 extremities. Hands and feet are warm. Gastrointestinal (Abdomen): Abdomen soft, nontender and nondistended. Musculoskeletal: Left lower extremity knee immobilizer in place. Sterile dry dressing and Domenic wrap in place. No evidence of strikethrough or active bleeding. Moves toes and ankles symmetrically bilaterally. Sensation intact bilateral lower extremities. Pedal pulses palpable bilaterally. Calves are soft bilaterally Homans negative. Skin: no rashes, warm and dry Neurologic: PERRL, EOMI, accommodation nl, no face palsy, no dysarthria Psychiatric: A+Ox3, euthymic affect Lymphatic: no cervical or axillary lymphadenopathy Results & Data Vital Signs (Past 12 Hours) Vital Signs Temp Pulse Resp BP Pulse Ox O2 Del Method O2 Flow Rate 05/15/23 14:46 36.8 C 93 H 16 144/63 H 96 Room Air 05/15/23 10:34 Nasal Cannula 2 05/15/23 07:23 36.4 C L 77 16 118/56 L 95 Nasal Cannula 2 Diagnostic Findings Postop x-rays reviewed.
[2023-05-15] MEDS ORDERED: MECLIZINE HCL 25 MG TAB PO PRN (16:34)
[2023-05-15] MEDS: oxyCODONE HCL IR 5 MG TAB (IMMEDIATE RELEASE) PO PRN (19:36)
[2023-05-15] MEDS: ATORVASTATIN 40 MG TAB PO SCH (19:36)
--- NOTE | 2023-05-15 22:31 | Electrocardiogram Report ---
Test Reason : Blood Pressure : / mmHG Vent. Rate : 071 BPM Atrial Rate : 071 BPM P-R Int : 140 ms QRS Dur : 068 ms QT Int : 400 ms P-R-T Axes : 048 -09 049 degrees QTc Int : 434 ms Sinus rhythm with occasional Premature ventricular complexes Low voltage QRS Septal infarct , age undetermined Inferior infarct , age undetermined Abnormal ECG When compared with ECG of 16-JUN-2017 23:49, Premature ventricular complexes are now Present Inferior infarct is now Present Confirmed by Ramon Liu ([id number]) on 05/15/2023 10:31:39 PM Referred By: REFERRED SELF Confirmed By:Ramon Liu
[2023-05-16] MEDS: ACETAMINOPHEN 500 MG TAB PO SCH ×4 (00:55→22:23)
[2023-05-16] MEDS: oxyCODONE HCL IR 5 MG TAB (IMMEDIATE RELEASE) PO PRN ×3 (04:32→22:22)
[2023-05-16] MEDS: LEVOTHYROXINE SODIUM 100 MCG TABLET PO SCH (04:33)
--- NOTE | 2023-05-16 05:30 | Electrocardiogram Report ---
Test Reason : Blood Pressure : / mmHG Vent. Rate : 062 BPM Atrial Rate : 062 BPM P-R Int : 164 ms QRS Dur : 064 ms QT Int : 386 ms P-R-T Axes : -12 061 -09 degrees QTc Int : 391 ms Normal sinus rhythm Low voltage QRS Cannot rule out Anterior infarct (cited on or before 13-MAY-2023) Abnormal ECG When compared with ECG of 13-MAY-2023 12:53, Premature ventricular complexes are no longer Present Criteria for Inferior infarct are no longer Present Questionable change in initial forces of Septal leads Inverted T waves have replaced nonspecific T wave abnormality in Inferior leads Confirmed by Ramon Liu ([id number]) on 05/16/2023 5:29:40 AM Referred By: REFERRED SELF Confirmed By:Ramon Liu
[2023-05-16 08:02] LABS: Hematocrit (blood only) 33.7 % (37.0-47.0); Hemoglobin 11.4 g/dl (12.0-16.0); Mean Corpuscular Hemoglobin 30.2 pg (25.0-34.0); Mean Corpuscular Hgb Conc 33.8 g/dL (32.0-36.0); Mean Corpuscular Volume 89.2 fL (80.0-100.0); Mean Platelet Volume 9.8 fL (9.4-12.4); Platelet Count 255 K/uL (130-400); RDW Coefficient of Variation 12.6 % (11.5-14.5); RDW Standard Deviation 41.1 fL (36.4-46.3); Red Blood Count 3.78 M/uL (4.20-5.40); White Blood Count 8.12 K/ul (4.8-10.8)
[2023-05-16 08:06] LABS: Calcium 8.9 mg/dl (8.6-10.3); Creatinine Clr Calc Pharmacy 44.6 ml/min; Est GFR (African American) 76.7 ml/min; Est GFR (Non-African American) 66.2 ml/min; Potassium 4.1 mmol/L (3.5-5.1)
[2023-05-16] MEDS: DOCUSATE SODIUM/SENNA 50/8.6MG TAB PO SCH ×2 (08:08→19:45)
[2023-05-16] MEDS: MONTELUKAST SODIUM 10 MG TABLET PO SCH (08:09)
[2023-05-16] MEDS: CHOLECALCIFEROL 1,000 UNITS 25 MCG TAB PO SCH (08:09)
[2023-05-16] MEDS: ASPIRIN 81 MG ECTAB PO SCH ×2 (08:09→19:45)
[2023-05-16] MEDS: CEROVITE ADV FORMULA TAB PO SCH (08:09)
[2023-05-16] MEDS: MAGNESIUM OXIDE 400 MG TAB PO SCH (08:09)
[2023-05-16] MEDS: PANTOprazole 40 MG TAB PO SCH (08:09)
[2023-05-16] MEDS: LOSARTAN POTASSIUM 50 MG TAB PO SCH (09:21)
[2023-05-16] MEDS: SPIRONOLACTONE 25 MG TAB PO SCH (09:21)
--- NOTE | 2023-05-16 11:58 | Hospitalist Progress Note ---
Date of Service May 16, 2023 Assessment & Plan (1) Fall: (2) Patellar fracture: (3) Gait disturbance: (4) HTN (hypertension): (5) Hypothyroidism: (6) Osteoporosis: (7) History of back surgery: Plan This is an 82-year-old female with PMH of hypertension, CKD 3, anxiety, hy pothyroidism, dyslipidemia, osteoporosis who presents after a fall and was found to have an acute displaced left patellar fracture. Mechanical fall Displaced left patellar fracture baseline gait disturbance from chronic back pain requiring walker contributing to fall Knee CT acute comminuted, moderately displaced, left patellar fracture, as described above. Numerous bone fragments. Associated prepatellar contusion and small hemarthrosis POD ORIF L patellar fx - displaced POD #2, Dr. Schofield, EBL 20ml Cont pain control, knee in immobilizer per ortho Partial WBAT in knee immobilizer w/ walker/wheelchair X 6 weeks. She will need ASA BID x 4 weeks and ICE to L knee awaiting PT/OT recommendations, pt agreeable to rehab if needed Senna S BID ordered HTN Chronic; stable. Normotensive on admission. Continue losartan, resume spironolactone per home regimen. Parameters placed on BP meds CKD III Cr 0.90, at baseline. Daily BMP chronic, stable Hypothyroidism chronic, stable. Continue levothyroxine HLD Continue statin chronic, stable Anemia very mild, likely dilutional hgb 11.4, pre op 13 stable, no transfusion indicated DVT Ppx: SCDs, ASA BID x [address] Soto through 06/11 Code status: FULL PCP: Saran Schneider Dispo: Admitted to med/surg, PT/OT ordered and awaiting recs, discussed with nurse at [facility] to remove vanna today Pt was seen and examined in collaboration with Dr. Ham, please see addendum A total of 45 was spent coordinating, documenting, and providing care for this patient excluding time spent in the performance of separately billed services. This included personally viewing all current laboratories and imaging studies, medication reconciliation, outpatient chart review, and discussion with specialists. Admission and Anticipated Discharge Date Admission Date: May 13, 2023 Supervising Physician Co-Signing Physician Notes I have seen and examined the patient and have discussed the case with the provider above. I agree with the assessment and plan as stated. Pain well managed. Medically stbale for discharge when bed is available. Subjective Patient was seen and examined in 375. Follow-up left patellar fracture status post ORIF. She states that she thought she had to go the bathroom and when trying to go the bathroom was having increased left leg pain. She is now requiring analgesia. She is passing gas but has not yet moved her bowels. She denies f/c/s, chest pain, sob, n/v/d. Review of Systems Review of Systems: All systems reviewed & are unremarkable except as noted in HPI & below Physical Exam Physical Exam: Gen: WD/WN, elderly, F NAD, A&O x3, sitting up in bed HEENT: Normocephalic, atraumatic, conjunctivae moist, sclerae anicteric, mucous membranes moist. Lung: Clear to Auscultation bilaterally, no wheezes/rales/rhonchi Heart: Regular rate, regular rhythm, no murmurs, rubs, or gallops Abdomen: Soft, NT, ND +BS x 4 Extremities: LLE dressing CDI, NVI distally, no edema or erythema Skin: Warm, no rash, negative turgor. Results & Data Results & Data Vital Signs (Past 12 Hours) Vital Signs Temp Pulse Resp BP Pulse Ox O2 Del Method 05/16/23 08:06 Room Air 05/16/23 05:59 36.6 C 78 16 128/65 93 Room Air Laboratory Results Short CBC 05/16/23 Range/Units 06:57 WBC 8.12 (4.8-10.8) K/ul Hgb 11.4 L (12.0-16.0) g/dl Hct 33.7 L (37.0-47.0) % Plt Count 255 (130-400) K/uL BMP 05/16/23 06:57 Sodium 141 Potassium 4.1 Chloride 109 H Carbon Dioxide 28 BUN 23 Creatinine 0.82 Glucose 101 H Calcium 8.9 Medications Administered Current Inpatient Medications Acetaminophen (Acetaminophen 500 Mg Tab) 1,000 mg PO Q8H [facility] Stop: 06/12/23 15:59 Last Admin: 05/16/23 08:08 Dose: 1,000 mg Aspirin (Aspirin 81 Mg Ectab) 81 mg PO BID [facility] Stop: 06/14/23 08:59 Last Admin: 05/16/23 08:09 Dose: 81 mg Atorvastatin Calcium (Atorvastatin 40 Mg Tab) 40 mg PO QPM [facility] Stop: 06/12/23 20:59 Last Admin: 05/15/23 19:36 Dose: 40 mg Levothyroxine Sodium (Levothyroxine Sodium 100 Mcg Tablet) 100 mcg PO DAILYBB [facility] Stop: 06/14/23 06:29 Last Admin: 05/16/23 04:33 Dose: 100 mcg Loratadine (Loratadine 10 Mg Tab) 10 mg PO QA PRN PRN Reason: Allergy Symptoms Stop: 06/14/23 08:59 Losartan Potassium (Losartan Potassium 50 Mg Tab) 100 mg PO [facility] Stop: 06/13/23 08:59 Last Admin: 05/16/23 09:21 Dose: 100 mg Magnesium Oxide (Magnesium Oxide 400 Mg Tab) 400 mg PO [facility] Stop: 06/14/23 08:59 Last Admin: 05/16/23 08:09 Dose: 400 mg Meclizine HCl (Meclizine Hcl 25 Mg Tab) 25 mg PO Q6 PRN PRN Reason: dizziness Stop: 06/14/23 16:33 Montelukast Sodium (Montelukast Sodium 10 Mg Tablet) 10 mg PO [facility] Stop: 06/14/23 08:59 Last Admin: 05/16/23 08:09 Dose: 10 mg Multivitamins/Minerals (Cerovite Adv Formula Tab) 1 tab PO [facility] Stop: 06/14/23 08:59 Last Admin: 05/16/23 08:09 Dose: 1 tab Ondansetron HCl (Ondansetron Inj 2 Mg/Ml 2 Ml Vial) 4 mg IV Q6H PRN PRN Reason: Nausea Stop: 06/12/23 15:21 Oxycodone HCl (Oxycodone Hcl Ir 5 Mg Tab (Immediate Release)) 5 - 10 mg PO Q4H PRN PRN Reason: pain Stop: 05/27/23 19:34 Last Admin: 05/16/23 09:23 Dose: 5 mg Pantoprazole Sodium (Pantoprazole 40 Mg Tab) [facility] Stop: 06/14/23 08:59 Last Admin: 05/16/23 08:09 Dose: 40 mg Polyethylene Glycol (Polyethylene (Miralax) 17 Gm Pack) 17 gm PO DAILY PRN PRN Reason: Constipation Stop: 11/20/23 15:21 Senna/Docusate Sodium (Docusate Sodium/Senna 50/8.6mg Tab) 1 tab PO QAM [facility] Stop: 06/14/23 11:59 Last Admin: 05/16/23 08:08 Dose: 1 tab Spironolactone (Spironolactone 25 Mg Tab) 25 mg PO QAM [facility] Stop: 06/14/23 08:59 Last Admin: 05/16/23 09:21 Dose: 25 mg Vitamin D (Cholecalciferol 1,000 Units 25 Mcg Tab) 3,000 units PO QAM [facility] Stop: 06/13/23 08:59 Last Admin: 05/16/23 08:09 Dose: 3,000 units (1) Fall Encounter type: initial encounter Qualified Code(s): W19.XXXA - Unspecified fall, initial encounter (2) Patellar fracture Encounter type: initial encounter Fracture alignment: displaced Fracture morphology: comminuted Fracture type: closed Laterality: left Qualified Code(s): S82.042A - Displaced comminuted fracture of left patella, initial encounter for closed fracture (4) HTN (hypertension) Hypertension type: primary hypertension Qualified Code(s): I10 - Essential (primary) hypertension (5) Hypothyroidism Hypothyroidism type: unspecified Qualified Code(s): E03.9 - Hypothyroidism, unspecified
[2023-05-16] MEDS: ATORVASTATIN 40 MG TAB PO SCH (19:45)
--- NOTE | 2023-05-16 20:10 | Orthopedic Progress Note ---
Date of Service May 16, 2023 Assessment & Plan (1) Displaced comminuted fracture of left patella: Plan: Postop day #2 status post open reduction internal fixation left comminuted, displaced, patella fracture. Continue use of left knee immobilizer. WBAT in knee immobilizer w/ walker/wheelchair X 6 weeks. VTE prophylaxis with ELLY hose and SCDs while in bed. Recommend aspirin 81 mg 1 p.o. twice daily x4 weeks. Ice to the left knee. May begin PT/OT for transfers and gait training. Maintain partial weightbearing left lower extremity in knee immobilizer. Sterile dry dressing change every other day by nursing staff. Social service for discharge planning. Thank you for the opportunity to consult in the care of this patient. Marcso Soto DO [facility] (2) Left anterior knee pain: Admission and Anticipated Discharge Date Admission Date: May 13, 2023 Subjective Patient seen on rounds. Patient awake and alert. No pain while resting in bed. Mild to moderate pain with transfers and ambulation left knee. Knee immobilizer in place. She denies f/c/s, chest pain, sob, n/v/d. Physical Exam Constitutional: WD/WN, vitals as above Eyes: PERRL, conjunctivae normal, anicteric sclerae ENMT: external ear and nose normal, oropharynx normal Neck: trachea midline, no thyromegaly Respiratory: normal respiratory effort, lungs clear to auscultation Musculoskeletal: Knee immobilizer and sterile dry dressing in place left knee. Dressing has been changed earlier this shift. Toes are pink and warm. Sensation intact. Pedal pulses palpable. Homans negative. Mild tenderness left knee with palpation. Skin: no rashes, warm and dry Neurologic: PERRL, EOMI, accommodation nl, no face palsy, no dysarthria Psychiatric: A+Ox3, euthymic affect Lymphatic: no cervical or axillary lymphadenopathy Results & Data Vital Signs (Past 12 Hours) Vital Signs Temp Pulse Resp BP Pulse Ox O2 Del Method 05/16/23 19:49 36.7 C 85 16 152/74 H 95 Room Air 05/16/23 15:28 37.3 C 80 16 146/69 H 96 Room Air
[2023-05-17] MEDS: LEVOTHYROXINE SODIUM 100 MCG TABLET PO SCH (05:42)
[2023-05-17] MEDS: ACETAMINOPHEN 500 MG TAB PO SCH (09:29)
[2023-05-17] MEDS: CHOLECALCIFEROL 1,000 UNITS 25 MCG TAB PO SCH (09:30)
[2023-05-17] MEDS: MAGNESIUM OXIDE 400 MG TAB PO SCH (09:31)
[2023-05-17] MEDS: LOSARTAN POTASSIUM 50 MG TAB PO SCH (09:31)
[2023-05-17] MEDS: MONTELUKAST SODIUM 10 MG TABLET PO SCH (09:32)
[2023-05-17] MEDS: CEROVITE ADV FORMULA TAB PO SCH (09:32)
[2023-05-17] MEDS: SPIRONOLACTONE 25 MG TAB PO SCH (09:33)
[2023-05-17] MEDS: PANTOprazole 40 MG TAB PO SCH (09:33)
[2023-05-17] MEDS: DOCUSATE SODIUM/SENNA 50/8.6MG TAB PO SCH (09:34)
[2023-05-17] MEDS: ASPIRIN 81 MG ECTAB PO SCH (09:35)
[2023-05-17] MEDS: oxyCODONE HCL IR 5 MG TAB (IMMEDIATE RELEASE) PO PRN (11:32)
--- NOTE | 2023-05-17 11:36 | Discharge Summary ---
Discharge Summary Date of Service May 17, 2023 Notes For Next Care Provider Patient sustained a fall with a displaced left patellar fracture status post ORIF on 05/14/[address] Soto. She is to remain partial weightbearing with knee immobilizer in place with walker/wheelchair for 6 weeks. She may begin PT and OT for gait training and transfers. Hospital course was unremarkable. Recommend a sterile dry dressing change every other day by nursing staff or sooner if soiled. Ice to left knee 3 times daily. Current pain regimen includes Tylenol and as needed oxycodone. Medication Changes From Visit Aspirin 81 mg twice daily for 4 weeks with a stop date of 06/12/2023. This is for DVT prophylaxis per orthopedic surgeon. Acetaminophen 1000 mg every 8 hours. This can be discontinued when patient's inflammation and pain under control. Oxycodone 5 mg every 6 hours as needed for severe pain. Admission HPI Per Admitting Provider This is an 82-year-old female with PMH of hypertension, CKD 3, anxiety, hypothyroidism, dyslipidemia, osteoporosis who presents after a fall. Was getting her flu and COVID vaccines at a local [facility] with her son and was walking down the exit ramp with her walker when it got away from her and she fell, landing on her left knee. Presented to ED for further evaluation. Pain is controlled at this time with rest and IV morphine. No lightheadedness, chest pain or shortness of breath preceding fall. Denies hitting her head or LOC. Not on anticoagulation. History of osteoporosis recently switched from Fosamax to Prolia. Denies any fever, chills, lightheadedness, palpitations, nausea, vomiting, abdominal pain, dysuria, diarrhea or constipation Admission Exam Per Admitting Provider Physical Exam Physical Exam: General Appearance:WD/WN, vitals as above, NAD, sitting up in bed, pleasant, conversing easily Head: normocephalic, atraumatic Eyes:normal inspection, PERRL, conjunctivae normal, anicteric sclerae ENT: external ear and nose normal, oropharynx normal Neck: normal visual inspection, trachea midline, no thyromegaly Respiratory:normal respiratory effort, lungs clear to auscultation, no wheeze, rales, rhonchi. No accessory muscle use Cardiovascular: regular rate, rhythm, +systolic murmur, normal peripheral pulses, no BLE edema. Vessels: no JVD Chest: normal inspection of chest Abdomen/GI: normal bowel sounds, soft, nontender, no hepatosplenomegaly Extremities/Musculoskeletal:+ L knee with immobilizer in place, distally NVI, no cyanosis or clubbing, extremities motor strength 5/5 Neurologic: PERRL, EOMI, accommodation nl, no face palsy, no dysarthria, CN's II-XI intact bilaterally and moves all extremities Psychiatric:A+Ox3, euthymic affect Skin: no rashes, normal color, warm/dry Principal Dx & Hospital Course #1 = Principal Diagnosis (1) Fall: (2) Patellar fracture: (3) Gait disturbance: (4) HTN (hypertension): (5) Hypothyroidism: (6) Osteoporosis: (7) History of back surgery: Plan (1) Fall: (2) Patellar fracture: (3) Gait disturbance: (4) HTN (hypertension): (5) Hypothyroidism: (6) Osteoporosis: (7) History of back surgery: Plan This is an 82-year-old female with PMH of hypertension, CKD 3, anxiety, hypothyroidism, dyslipidemia, osteoporosis who presents after a fall and was found to have an acute displaced left patellar fracture. Mechanical fall Displaced left patellar fracture baseline gait disturbance from chronic back pain requiring walker contributing to fall Knee CT acute comminuted, moderately displaced, left patellar fracture, as desc ribed above. Numerous bone fragments. Associated prepatellar contusion and small hemarthrosis POD ORIF L patellar fx - displaced POD #3, Dr. Schofield, EBL 20ml Cont pain control, knee in immobilizer per ortho Partial WBAT in knee immobilizer w/ walker/wheelchair X 6 weeks. She will need ASA BID x 4 weeks (06/12/23) and ICE to L knee Pt to d/c to [facility] today HTN Chronic; stable. Normotensive on admission. Continue losartan, resume spironolactone per home regimen. Parameters placed on BP meds CKD III Cr 0.90, at baseline. Daily BMP chronic, stable Hypothyroidism chronic, stable. Continue levothyroxine HLD Continue statin chronic, stable Anemia very mild, likely dilutional hgb 11.4, pre op 13 stable, no transfusion indicated DVT Ppx: SCDs, ASA BID x [address] Soto through 06/12 Code status: FULL PCP: Saran Schneider Dispo: D/C to [facility] today Pt was seen and examined in collaboration with Dr. Varela, please see addendum Discharge Exam Gen: WD/WN, elderly, F NAD, A&O x3, sitting up in bed HEENT: Normocephalic, atraumatic, conjunctivae moist, sclerae anicteric, mucous membranes moist. Lung: Clear to Auscultation bilaterally, no wheezes/rales/rhonchi Heart: Regular rate, regular rhythm, no murmurs, rubs, or gallops Abdomen: Soft, NT, ND +BS x 4 Extremities: LLE dressing CDI, NVI distally, no edema or erythema Skin: Warm, no rash, negative turgor. Updated Medication List Medication Instructions Recorded Confirmed Type atorvastatin 40 mg tablet 40 mg PO QPM #90 tabs 02/09/19 05/13/23 History cholecalciferol (vitamin D3) 75 3,000 units PO QAM 02/09/19 05/13/23 History mcg (3,000 unit) tablet fluticasone propionate 50 2 sprays intranasal DAILY PRN 02/09/19 05/13/23 History mcg/actuation nasal Allergy Symptoms spray,suspension (Flonase Allergy Relief) hydrocortisone 2.5 % topical cream 1 appln NJ DAILY PRN Hemorrhoids 02/09/19 05/13/23 History with perineal applicator (Anusol-HC) hydrocortisone acetate 25 mg 25 mg NJ BID PRN Hemorrhoids #28 ea 02/09/19 05/13/23 History rectal suppository loratadine 10 mg capsule 10 mg PO QAM 02/09/19 05/13/23 History magnesium 200 mg tablet 400 mg PO QAM 02/09/19 05/13/23 History mpldohazbfxb-rodusvyl-lgwbah tablet 1 tab PO QAM 02/09/19 05/13/23 History meclizine 25 mg tablet 25 mg PO Q6 PRN dizziness #30 tabs 02/11/19 05/13/23 Rx montelukast 10 mg tablet 10 mg PO QAM #30 tabs 02/27/19 05/13/23 History levothyroxine 100 mcg tablet 100 mcg PO QAM 03/19/21 05/13/23 History lidocaine 5 % topical patch 1 patch topical DAILY PRN Allergy 03/19/21 05/13/23 History Symptoms losartan 100 mg tablet 100 mg PO QAM 03/19/21 05/13/23 History ondansetron 4 mg disintegrating 4 mg PO Q8H 03/19/21 05/13/23 History tablet pantoprazole 20 mg tablet,delayed 20 mg PO QAM 03/19/21 05/13/23 History release sennosides 8.6 mg tablet (senna) 8.6 mg PO HS 03/19/21 05/13/23 History spironolactone 25 mg tablet 25 mg PO QAM 03/19/21 05/13/23 History Medical Marijuana 10 mg PO BID PRN Pain 03/22/21 05/13/23 History baclofen 10 mg tablet 10 mg PO BID PRN pain/spasm #30 01/16/23 05/13/23 Rx tabs denosumab 60 mg/mL subcutaneous 60 mg subcut UD 05/13/23 05/13/23 History syringe (Prolia) acetaminophen 500 mg tablet 1,000 mg PO Q8H #10 tabs 05/17/23 Rx (Tylenol Extra Strength) aspirin 81 mg tablet,delayed 81 mg PO BID #60 tabs 05/17/23 Rx release oxycodone 5 mg tablet 5 mg PO Q6H PRN pain (scale score 05/17/23 Rx 7-10) #8 tabs Hospital Stay Data Consultations 05/13/23 13:14 Consult Orthopedic Surgery Routine Procedures Performed Operation Date: 05/14/23 07:30 Actual Procedures p Open Reduction Internal Fixation Left Patella(Left) - Marcos Soto DO Diagnostic Imagining Performed Knee X-Ray 05/13/23 11:49 XR knee LT 1 or 2V routine CLINICAL HISTORY: fall COMPARISON: None FINDINGS: There is an acute moderately displaced comminuted patellar fracture. Multiple bone fragments are noted. Fracture extends to articular surface. Fracture is displaced 1.6 cm. No additional fractures are identified. There is prepatellar soft tissue swelling. IMPRESSION: Acute comminuted displaced intra-articular left patellar fracture with multiple associated bone fragments. ACT 112: Negative or not required by law. Electronically signed by: Ascencion Navarro M.D. 05/13/2023 12:[address] 05/13/23 13:[address] WITHOUT CONTRAST CLINICAL HISTORY: PATELLA FRACTURE COMPARISON STUDY: Left knee radiographs performed earlier today. TECHNIQUE: Axial images of the left knee were obtained without IV contrast. Sagittal and coronal reconstructions were viewed. Automated exposure control was utilized for the study. A dose lowering technique was utilized adhering to the principles of ALARA. FINDINGS: Note is made of an acute comminuted moderately displaced fracture which extends through the mid patella with intra-articular extension. Anteriorly, the fracture is displaced 1.8 cm. Small associated hemarthrosis is noted. Prepatellar contusion is noted. This contains several small bone fragments. No acute fracture of the distal left femur or proximal left tibia or fibula is identified. There are no osseous lesions. No soft tissue gas is present. IMPRESSION: 1. Acute comminuted moderately displaced left patellar fracture, as described above. Numerous bone fragments. Associated prepatellar contusion and small hemarthrosis. 2. No additional fractures. ACT 112: Negative or not required by law. Electronically signed by: Ascencion Navarro M.D. 05/13/2023 2:20 PM Chest X-Ray 05/13/23 15:30 XR chest 1V portable CLINICAL HISTORY: pre-op COMPARISON STUDY: Chest radiograph October 14, 2015. FINDINGS: Lung volumes are mildly diminished. Thoracolumbar spine fusion is incidentally noted. Lungs are clear. There is no pneumothorax or pleural effusion. Cardiac size is normal. Mediastinal contours are normal. There is no evidence for pulmonary edema. IMPRESSION: No acute cardiopulmonary findings. ACT 112: Negative or not required by law. Electronically signed by: Ascencion Navarro M.D. 05/13/2023 3:43 PM Knee X-Ray 05/14/23 07:00 FL knee LT 1 or 2V CLINICAL HISTORY: ORIF LT PATELLA TECHNIQUE: 2 views were obtained with the C-arm in the OR with the above procedure. Total fluoroscopy time was 82.8 seconds. Radiation dose was 3.68 mGy. Comparison: Comparison is made to knee radiographs 05/13/2023 FINDINGS/IMPRESSION: Intraoperative images were obtained of open reduction internal fixation of the left patellar fracture. Please correlate with intraoperative fluoroscopy and operative report. ACT 112: Negative or not required by law. Electronically signed by: Jeet Dahl M.D. 05/14/2023 4:37 PM Knee X-Ray 05/14/23 11:07 XR knee LT 3V CLINICAL HISTORY: Postoperative ORIF TECHNIQUE: 3 views of the right knee were obtained. Comparison: Comparison is made to knee radiographs 03/13/2023 FINDINGS: Postoperative appearance of internal fixation of the previously noted patellar fracture. Soft tissue swelling and surgical mitali are seen with a small amount of subcutaneous emphysema which is likely postprocedural. IMPRESSION: Expected postoperative appearance of patellar fixation. ACT 112: Negative or not required by law. Electronically signed by: Jeet Dahl M.D. 05/14/2023 2:07 PM Chest X-Ray 05/14/23 11:47 XR chest 1V portable CLINICAL HISTORY: Change in lung sounds TECHNIQUE: Single frontal radiograph of the chest was obtained. Comparison: Comparison is made to chest radiograph 05/13/2023 FINDINGS: Posterior fixation hardware is seen in the thoracolumbar spine. Cardiomegaly is noted. The lungs are clear. No evidence of pleural effusion or pneumothorax. IMPRESSION: No acute abnormalities and in particular no radiographic evidence of pneumonia. ACT 112: Negative or not required by law. Electronically signed by: Jeet Dahl M.D. 05/14/2023 1:03 PM Pending Results Patient Have Any Pending Studies at Discharge: No Discharge Instructions Given to Patient (Per Discharging Provider) MEDICATION CHANGES: Aspirin 81 mg twice daily for 4 weeks with a stop date of 06/12/2023. This is for DVT prophylaxis per orthopedic surgeon. Acetaminophen 1000 mg every 8 hours. This can be discontinued when patient's inflammation and pain under control. Oxycodone 5 mg every 6 hours as needed for severe pain. SUMMARY OF TEST RESULTS: You were admitted to hospital secondary to a fall and a left dislocated patellar fracture. You underwent surgical fixation of the fracture and will require acute rehab. There were no complications during her hospital stay. PENDING TEST RESULTS: None RECOMMENDATIONS FOR FOLLOW-UP: Please follow-up with primary care provider upon discharge from rehab. According to orthopedic surgeon you are to be partial weightbearing as tolerated in knee immobilizer with walker/wheelchair for 6 weeks. Sterile dry dressing change every other day by nursing staff. Ice to left knee 3 times a day. Recommend follow-up with Dr. Soto in clinic within 2 weeks, please call [phone] to schedule appointment. OTHER INSTRUCTIONS: Seek medical attention if you have: * temperature above 101 * chest pain or trouble breathing * abdominal pain, nausea, vomiting * diarrhea, dark stools or bloody stools * any unanswered questions or concerns Call [phone] if symptoms are severe. Please take good care of yourself. It has been a pleasure taking care of you. Please take care of yourself. If you have any questions regarding your recent hospitalization please contact [facility] and request Tiffany Mckinney @ [phone]. Sienna James PA-C Total Time Total Time Spent Total Time Spent (In Minutes): 45 minutes Supervising Physician Co-Signing Physician Notes Pt seen and examined by me, care coordinated w/ B. HAFSA James, pls refer to her note above for further detail. Pt was admitted and treated for left patellar fracture, she is status post ORIF on 05/14/[address] Soto. Currently laying in bed in [facility]. She is awake, alert oriented and answering appropriately. Lungs are clear to auscultation, heart sounds regular, abdomen soft, nontender. Skin is warm and dry, Left LE in brace. Cont. dvt ppx w/ ASA 81 bid. Follow up w/ orthopedics. Plan to discharge to rehab. MD Avery
== END 2023-05-17 15:30 | DRG 517 ==
LOC: ED 11:34 → 3N 13:14 → SUATTDRO 13:14 → 3N 19:41